=== PATIENT | female | born 2000 | race Caucasian/White ===

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

== ENCOUNTER 2020-06-11 10:53 | Outpatient (CLI) | payer OTHER ==
[2020-06-11 19:12] LABS: BASOPHILS # (AUTO) 0.1 10^3/uL (0.0-0.1); BASOPHILS % (AUTO) 0.7 %; EOSINOPHILS # (AUTO) 0.1 10^3/uL (0.0-0.7); EOSINOPHILS % (AUTO) 0.7 %; HGB - HEMOGLOBIN 12.8 g/dL (12.0-16.0); LYMPHOCYTES # (AUTO) 2.8 10^3/uL (1.5-3.5); LYMPHOCYTES % (AUTO) 30.1 %; MEAN CORPUSCULAR HEMOGLOBIN 28.1 pg (27.0-31.0); MEAN CORPUSCULAR HGB CONC 30.9 g/dL (32.0-36.0); MEAN CORPUSCULAR VOLUME 90.8 fL (81.0-99.0); MEAN PLATELET VOLUME 11.3 fL (7.9-10.8); MONOCYTES # (AUTO) 0.5 10^3/uL (0.0-1.0); MONOCYTES % (AUTO) 5.7 %; NEUTROPHILS # (AUTO) 5.7 10^3/uL (1.5-6.6); NEUTROPHILS % (AUTO) 62.5 %; PLT - PLATELET COUNT 325 10^3/uL (130-450); RED BLOOD COUNT 4.56 10^6/uL (4.20-5.40); WHITE BLOOD COUNT 9.1 x10^3/uL (4.8-10.8)
[2020-06-11 19:27] LABS: ALBUMIN 4.5 g/dL (3.2-5.5); ALBUMIN/GLOBULIN RATIO 1.3 (1.0-2.2); BILIRUBIN,TOTAL 0.5 mg/dL (0.2-1.0); CALCIUM 9.7 mg/dL (8.5-10.3); CREATININE 0.9 mg/dL (0.4-1.0); TOTAL PROTEIN 7.9 g/dL (6.7-8.2)
== END 2020-06-11 23:59 | disposition home or self-care (01) ==
LOC: LAB.WCP 10:53
PROVIDERS: ATTEND Family Medicine
DX: K80.20 Calculus of gallbladder without cholecystitis without obstruction (principal)
CPT/HCPCS: 36415; 80053; 85025

== ENCOUNTER 2020-06-21 06:42 | Outpatient (CLI) | payer OTHER ==
--- NOTE | 2020-06-21 09:21 | Ultrasound Report ---
PROCEDURE: Abdomen Limited INDICATIONS: GALLSTONES TECHNIQUE: Real-time focused scanning was performed of the abdomen, with image documentation. COMPARISON: None FINDINGS: There is a large mobile gallstone measuring 1.8 x 1.2 cm. There is no gallbladder wall thickening or fluid around the gallbladder or sonographic Montoya sign. No dilated ducts. Common duct measures 2 mm. Visualized portions of the pancreas are unremarkable. The liver has a normal echo pattern. The right kidney is normal in size, measuring 10.4 cm. There is no right hydronephrosis. IMPRESSION: Cholelithiasis. Reviewed by: Surinder Khan MD on 06/21/2020 9:20 AM PST Approved by: Surinder Khan MD on 06/21/2020 9:20 AM PST Station ID: [id number]
== END 2020-06-21 06:43 | disposition home or self-care (01) ==
LOC: DI 06:42
PROVIDERS: ATTEND Family Medicine
DX: K80.20 Calculus of gallbladder without cholecystitis without obstruction (principal)

== ENCOUNTER 2020-07-26 16:44 | Outpatient (CLI) | payer OTHER | END 2020-07-26 16:45 | disposition home or self-care (01) | LOC: COV 16:44 | PROVIDERS: ATTEND Surgery | DX: Z01.812 Encounter for preprocedural laboratory examination (principal); K81.1 Chronic cholecystitis; Z20.822 Contact with and (suspected) exposure to COVID-19 ==

== ENCOUNTER 2020-07-30 07:34 | Day surgery (SDC) | payer OTHER ==
[~2020-07-30 07:34] MED LIST: ceFAZolin 2 GM/50 ML 2 GM/50 ML BAG IV ONE
[2020-07-30 07:52] LABS: HCG UR QUAL NEGATIVE
[2020-07-30] MEDS ORDERED: LACTATED RINGERS 1,000 ML IV ONE (08:08)
--- NOTE | 2020-07-30 08:14 | ANESTHESIA ---
Pre-Anesthesia VS, & Labs - Diagnosis cholecytitis, chronic - Procedure laparoscopic cholecystectomy Vital Signs: Temp Pulse Resp BP Pulse Ox 36.3 C L 81 16 124/75 97 07/30/20 07:40 07/30/20 07:40 07/30/20 07:40 07/30/20 07:40 07/30/20 07:40 Height: 5 ft 5 in Weight (kg): 88.9 kg Body Mass Index: 32.5 BMI Classification: Obese - NPO >8 hours - Is Patient ?: No - Lab Results Lab results reviewed: Yes Home Medications and Allergies Home Medications: Ambulatory Orders No Known Home Medications 07/19/20 No Known Home Medications 07/19/20 Allergies/Adverse Reactions: Allergies Allergy/AdvReac Type Severity Reaction Status Date / Time No Known Drug Allergies Allergy Verified 11/06/19 19:30 Anes History & Medical History - Anesthetic History Anesthesia Complications: reports: No previous complications, Post-Operative Nausea/Vomiting (C/S, under spinal) Family history of Anesthesia Complications: Denies Family history of Malignant Hyperthermia: Denies - Medical History Cardiovascular: reports: None Pulmonary: reports: None Gastrointestinal: reports: GERD, Other Urinary: reports: Chronic bladder infection Musculoskeletal: reports: None Endocrine/Autoimmune: reports: None Skin: reports: None Smoking Status: Former smoker - Surgical History Eyes Ears Nose Throat (EENT): reports: Tonsil/Adenoidectomy Exam General: Alert, Oriented x3, Cooperative Dental: WNL, Other (cap loose at upper left) Mouth Openin Fingerbreadth Neck Mobility: Normal Mallampati classification: II Thyromental Distance: 4-6 cm Respiratory: Lungs clear, Normal breath sounds Cardiovascular: Regular rate Neurological: Normal speech Mental/Cognitive Status: Alert/Oriented X3, Normal for patient Cognitive Status: Within normal limits Plan Anesthesia Type: General Consent for Procedure(s) Verified and Reviewed: Yes Code Status: Attempt Resuscitation ASA classification: 2-Mild systemic disease Is this case an emergency?: No
[2020-07-30] MEDS ORDERED: fentaNYL 100 MCG/2 ML VIAL ONE ×2 (08:18→09:26)
[2020-07-30] MEDS ORDERED: MIDAZOLAM 2 MG/2 ML VIAL ONE (08:18)
[2020-07-30] MEDS ORDERED: ROCURONIUM 50 MG/5 ML VIAL ONE (08:19)
[2020-07-30] MEDS ORDERED: LIDOCAINE-MPF 2% 5 ML VIAL ONE (08:19)
[2020-07-30] MEDS ORDERED: PROPOFOL 200 MG/20 ML VIAL IVP ONE (08:19)
[2020-07-30] MEDS ORDERED: BUPIVACAINE 0.25% PF 30 ML VIAL ONE (08:42)
[2020-07-30] MEDS ORDERED: ONDANSETRON 4 MG/2 ML VIAL ONE (09:26)
[2020-07-30] MEDS ORDERED: DEXAMETHASONE 4 MG/ML VIAL ONE (09:27)
[2020-07-30] MEDS ORDERED: KETOROLAC 30 MG/ML VIAL ONE (09:27)
[2020-07-30] MEDS ORDERED: BUPIVACAINE 0.25% PF 30 ML VIAL SUBQ ONE (09:47)
[2020-07-30] MEDS ORDERED: NEOSTIGMINE 1 MG/1 ML 10 ML MDV ONE (09:58)
[2020-07-30] MEDS ORDERED: GLYCOPYRROLATE 1 MG/5 ML VIAL ONE (09:58)
[2020-07-30] MEDS ORDERED: LACTATED RINGERS 800 ML IV ONE (10:03)
[2020-07-30] MEDS ORDERED: SEVOFLURANE 250 ML LIQUID INH ONE (10:05)
[2020-07-30] MEDS ORDERED: ONDANSETRON 4 MG/2 ML VIAL IVP PRN (10:07)
--- NOTE | 2020-07-30 10:07 | OPERATIVE REPORT ---
Operative Report - General Procedure Date: 07/30/20 Planned Procedure: lap matilde Pre-Op Diagnosis: chronic cholecystitis Procedure Performed: lap matilde Post Op Diagnosis: chronic cholecystitis - Procedure Note Primary Surgeon: maynor posey Anesthesia Technique: General ET tube, Local Pathology: gb Estimated Blood Loss (mL): 20 Indications: daily gallbladder pain Complications: none
[2020-07-30] MEDS ORDERED: oxyCODONE 5 MG TABLET PO PRN (10:24)
--- NOTE | 2020-07-30 10:58 | ANESTHESIA POST OP EVALUATION ---
Anesthesia Post Eval - Post Anesthesia Eval Vitals: Last Vital Signs Temp 37.7 C 07/30/20 10:48 Pulse 80 07/30/20 10:48 Resp 15 07/30/20 10:48 BP 123/69 07/30/20 10:48 Pulse Ox 97 07/30/20 10:48 CV Function Including HR & BP: positive: Stable Pain Control: positive: Satisfactory Nausea & Vomiting: positive: Negative Mental Status: positive: Baseline Respiratory Status: Airway Patent Hydration Status: Satisfactory Anesthesia Complications: positive: None
[2020-07-30 11:25] VITALS: BP 116/69
[2020-07-30] MEDS ORDERED: oxyCODONE 5 MG TABLET ONE (11:42)
--- NOTE | 2020-07-30 14:54 | OPERATIVE REPORT ---
DATE OF SERVICE: 07/30/2020 Physician: Ronaldo Cabral MD PREOPERATIVE DIAGNOSIS: Chronic cholecystitis. POSTOPERATIVE DIAGNOSIS: Chronic cholecystitis. PROCEDURE PERFORMED: Laparoscopic cholecystectomy. SURGEON: Ronaldo Cabral MD [employer] C[employer] TEACHER: None. ANESTHESIA 1. General endotracheal anesthesia. 2. Local anesthesia with Marcaine. COMPLICATIONS: None. SPECIMENS: Gallbladder. ESTIMATED BLOOD LOSS: 20 mL DRAINS: None. INDICATIONS FOR PROCEDURE: The patient is a healthy 20-year-old with classic chronic cholecystitis t ype symptoms. She has near daily right upper quadrant pain going to her upper back. On ultrasound, she has a large single gallstone. LFTs are normal. She presents for a laparoscopic cholecystectomy. Risks discussed, alternatives discussed, all questions answered and consent obtained. DESCRIPTION OF PROCEDURE: The patient was properly identified and brought to the operating room and placed in supine position. She voided prior to surgery. Sequential compression devices were placed. General endotracheal anesthesia was induced. She was prepped and draped in a sterile fashion and g iven preoperative antibiotics. Local anesthetic was given to incision areas. An incision was made a pproximately 4 cm cephalad and 4 cm right lateral of the umbilicus. Dissection proceeded down to the anterior rectus sheath. The anterior rectus sheath was slightly incised, lifted upwards and abdomen entered with the Veress needle. CO2 was insufflated to a pressure of 15. An 11 mm Visiport trocar with 30-degree scope was placed. There was no evidence of injury from Veress needle or trocar placem ent. Under direct vision, two 5 mm trocars were placed in the right upper quadrant and an 11 mm troc ar was placed in the epigastrium. Body of the gallbladder was retracted anterior. Lateral attachmen ts were partially taken down further mobilizing the gallbladder more anterior. The infundibulum and Jason's pouch area was cleared of surrounding peritoneal type tissue and adipose tissue. The infu ndibulum was retracted right lateral and caudad. The cystic duct and cystic artery were clearly iden tified. A large bare cystic plate area or window was created. The cystic duct was very narrow, only a few millimeters in diameter. The cystic duct was clipped at the gallbladder and 2 more times slig htly proximal, as well as at the cystic artery. Both were sharply divided. The gallbladder was mobi lized off of the bed of the liver without spillage of bile or stone material. The gallbladder was br ought out through the epigastrium. She had some bleeding at the epigastric trocar site, which was ev acuated. Fascia at the epigastric trocar site and the periumbilical trocar site were both closed wit h a [id number] 0 Vicryl suture. Skin was closed with buried interrupted and running 4-0 Monocry l subcuticular suture. Dressings were applied. She tolerated the procedure very well. TD: 07/30/2020 12:56
== END 2020-07-30 07:35 | disposition home or self-care (01) ==
LOC: SDS 07:34
PROVIDERS: ATTEND Surgery
PROC: 0FT44ZZ Resection of Gallbladder, Percutaneous Endoscopic Approach (ICD-10-PCS; principal; 2020-07-30 08:30)
DX: K80.10 Calculus of gallbladder with chronic cholecystitis without obstruction (principal); K21.9 Gastro-esophageal reflux disease without esophagitis; E66.9 Obesity, unspecified; Z68.32 Body mass index [BMI] 32.0-32.9, adult; Z87.891 Personal history of nicotine dependence
CPT/HCPCS: 47562; 81025; A9270; J0690; J3490; J7120

== ENCOUNTER 2020-09-01 17:42 | Emergency (ER) | payer OTHER ==
--- OUTSIDE RECORDS SUMMARY | 2020-09-01 18:25 | EXTERNAL MEDICAL SUMMARY RPT | Continuity of Care Document ---
:2000 Demographics Phone Unavailable Preferred Language Unknown Marital Status Unknown Buddhist Affiliation Unknown Race Unknown Ethnic Group Unknown Author Organization [facility] Address [address] [place] [address] Phone Social History date description facility [id number]
--- NOTE | 2020-09-01 18:30 | ED Physician Documentation ---
PD HPI LOWER EXT INJURY - Stated complaint Stated Complaint: LT ANKLE INJ - Chief complaint Chief Complaint: Trauma Ext - History obtained from History obtained from: Patient - History of Present Illness PD HPI LOW EXT INJURY LOCATION: Left, Foot Type of injury: Twist Where injury occurred: Park Timing - onset: How many hours ago (2) Timing - duration: Hours (1) Timing - details: Abrupt onset Pain level max: 8 Pain level now: 7 Improved by: Rest Worsened by: Moving, Palpating Associated symptoms: Swelling. No: Weakness, Numbness, Tingling, Discolored Contributing factors: No: Anticoagulated - Additional information Additional information: 20-year-old female states she was [place] [place] about an hour ago when she tripped and inverted her left ankle. Now has left ankle pain. Worse with walking, better with rest. There is swelling as well. No numbness or tingling. Not anticoagulated. No other injuries Review of Systems Constitutional: denies: Fever, Chills GI: denies: Nausea, Vomiting, Diarrhea : denies: Now EGA Musculoskeletal: denies: Neck pain, Back pain PD PAST MEDICAL HISTORY - Past Medical History Past Medical History: Yes Cardiovascular: None Respiratory: None Neuro: None Endocrine/Autoimmune: None GI: GERD, Other : Chronic bladder infection HEENT: Chronic vision loss Psych: Anxiety, Panic attacks, Post traumatic stress disorder Musculoskeletal: None Derm: None - Past Surgical History Past Surgical History: Yes General: Cholecystectomy HEENT: Tonsil/Adenoidectomy - Present Medications Home Medications: Ambulatory Orders Medication Instructions Recorded Confirmed Pnv No.95/Ferrous Fum/Folic AC 1 each PO DAILY 09/01/20 09/01/20 [ Tablet] - Allergies Allergies/Adverse Reactions: Allergies Allergy/AdvReac Type Severity Reaction Status Date / Time No Known Drug Allergies Allergy Verified 09/01/20 17:45 - Social History Does the pt smoke?: No Smoking Status: Never smoker Does the pt drink ETOH?: No Does the pt have substance abuse?: No - Immunizations Immunizations are current?: Yes PD ED PE NORMAL - Vitals Vital signs reviewed: Yes - General General: Alert and oriented X 3, No acute distress - HEENT HEENT: Moist mucous membranes - Neck Neck: Supple, no meningeal sign - Derm Derm: Warm and dry - Extremities Extremities: Other (Patient over the lateral malleolus of the left ankle. No tenderness over the remainder of the foot including base of the fifth meta tarsal. No tenderness over the proximal tibia or fibula. Mild swelling over the lateral malleolus as well. neurovascular intact) - Neuro Neuro: Alert and oriented X 3 - Psych Psych: Normal mood, Normal affect Results - Vitals Vitals: Vital Signs - 24 hr 09/01/20 09/01/20 17:46 18:44 Temperature 36.7 C 36.8 C Heart Rate 103 H 81 Respiratory 18 16 Rate Blood Pressure 149/90 H 117/98 H O2 Saturation 99 98 Oxygen O2 Source Room air - Rads (name of study) L ankle xray Radiology: Prelim report reviewed, EMP read contemporaneously, See rad report (No acute bony abnormality) PD MEDICAL DECISION MAKING - ED course Complexity details: reviewed results, re-evaluated patient, considered differential, d/w patient ED course: Patient is a 20-year-old female who presents with a left ankle sprain. No acute findings on x-ray. Placed in a gel splint for comfort and given crutches. Declines pain medication here or for home. Patient counseled regarding signs and symptoms for which I believe and urgent re-evaluation would be necessary. Patient with good understanding of and agreement to plan and is comfortable going home at this time This document was made in part using voice recognition software. While efforts are made to proofread this document, sound alike and grammatical errors may occur. Departure - Departure Disposition: 01 Home, Self Care Clinical Impression: Left ankle sprain Qualifiers: Encounter type: initial encounter Involved ligament of ankle: unspecified ligament Qualified Code(s): S93.402A - Sprain of unspecified ligament of left ankle, initial encounter Condition: Good Instructions: ED Sprain Ankle W X Ray Follow-Up: BON JOHNSON, MSN, MARKETING INSTRUCTOR [Primary Care Provider] - Within 1 week Comments: Your x-ray does not show any acute abnormalities today. Follow-up with your primary care provider in a week for repeat evaluation. The splint will help to support the ankle while it heals. You may bear weight as tolerated. Discharge Date/Time: 09/01/20 18:44
--- NOTE | 2020-09-01 18:35 | XRAY Report ---
PROCEDURE: Ankle 3 View LT INDICATIONS: fall, L ankle pain TECHNIQUE: 3 views of the ankle were acquired. COMPARISON: None. FINDINGS: Bones: No acute fractures or dislocations. Ankle mortise is normally aligned. No suspicious bony l esions. A small os naviculare is present. Soft tissues: Soft tissue edema is seen over the lateral malleolus. IMPRESSION: No acute osseous abnormality. Soft tissue edema is seen of the lateral malleolus. If the re is clinical concern or persistent symptoms, additional imaging such as repeat radiographs or advan randi imaging (e.g. CT, MRI) may be helpful for further evaluation. Reviewed by: Estevan Petty MD on 09/01/2020 6:34 PM PDT Approved by: Estevan Petty MD on 09/01/2020 6:34 PM PDT Station ID: [id number]
[2020-09-01 18:44] VITALS: BP 117/98
== END 2020-09-01 18:44 | disposition home or self-care (01) ==
LOC: ED 17:42
DX: S93.402A Sprain of unspecified ligament of left ankle, initial encounter (principal); X50.1XXA Overexertion from prolonged static or awkward postures, initial encounter; Y93.01 Activity, walking, marching and hiking; Y92.830 Public park as the place of occurrence of the external cause
CPT/HCPCS: 99282; 99283

== ENCOUNTER 2021-02-24 10:24 | Outpatient (CLI) | payer OTHER | END 2021-02-24 23:59 | disposition home or self-care (01) | LOC: LAB.N 10:24 | PROVIDERS: ATTEND Family Medicine | DX: R07.0 Pain in throat (principal); Z20.822 Contact with and (suspected) exposure to COVID-19 | CPT/HCPCS: 87070 ==

== ENCOUNTER 2021-08-29 16:32 | Outpatient (CLI) | payer OTHER ==
[2021-08-29 21:16] LABS: BASOPHILS # (AUTO) 0.1 10^3/uL (0.0-0.1); BASOPHILS % (AUTO) 0.6 %; EOSINOPHILS # (AUTO) 0.1 10^3/uL (0.0-0.7); EOSINOPHILS % (AUTO) 1.5 %; HCT - HEMATOCRIT 39.8 % (37.0-47.0); HGB - HEMOGLOBIN 13.4 g/dL (12.0-16.0); LYMPHOCYTES # (AUTO) 3.1 10^3/uL (1.5-3.5); LYMPHOCYTES % (AUTO) 33.3 %; MEAN CORPUSCULAR HEMOGLOBIN 30.5 pg (27.0-31.0); MEAN CORPUSCULAR HGB CONC 33.7 g/dL (32.0-36.0); MEAN CORPUSCULAR VOLUME 90.7 fL (81.0-99.0); MEAN PLATELET VOLUME 11.6 fL (7.9-10.8); MONOCYTES # (AUTO) 0.6 10^3/uL (0.0-1.0); MONOCYTES % (AUTO) 5.9 %; NEUTROPHILS # (AUTO) 5.5 10^3/uL (1.5-6.6); NEUTROPHILS % (AUTO) 58.6 %; PLT - PLATELET COUNT 290 10^3/uL (130-450); RED BLOOD COUNT 4.39 10^6/uL (4.20-5.40); RED CELL DISTRIBUTION WIDTH 12.8 % (12.0-15.0); WHITE BLOOD COUNT 9.3 x10^3/uL (4.8-10.8)
[2021-08-29 21:28] LABS: ALBUMIN 4.5 g/dL (3.2-5.5); ALBUMIN/GLOBULIN RATIO 1.6 (1.0-2.2); BILIRUBIN,TOTAL 0.8 mg/dL (0.2-1.0); CALCIUM 9.2 mg/dL (8.5-10.3); CREATININE 0.9 mg/dL (0.4-1.0); POTASSIUM 3.7 mmol/L (3.5-5.0); TOTAL PROTEIN 7.4 g/dL (6.7-8.2)
[2021-08-29 21:43] LABS: THYROID STIMULATING HORMONE 1.34 uIU/mL (0.34-5.60)
[2021-09-01 22:46] LABS: DHEA SULFATE 327 mcg/dL (44-286)
[2021-09-03 22:37] LABS: 17-HYDROXYPREGNENOLONE 76 ng/dL
== END 2021-08-29 16:33 | disposition home or self-care (01) ==
LOC: LAB.N 16:32
PROVIDERS: ATTEND Nurse Practitioner
DX: N92.6 Irregular menstruation, unspecified (principal); R53.83 Other fatigue; E66.9 Obesity, unspecified
CPT/HCPCS: 36415; 80050; 82627; 84143; 84403

== ENCOUNTER 2021-11-28 16:25 | Outpatient (CLI) | payer OTHER | END 2021-11-28 16:26 | disposition home or self-care (01) | LOC: LAB.N 16:25 | PROVIDERS: ATTEND Nurse Practitioner Obstetrics & Gynecology | DX: Z31.41 Encounter for fertility testing (principal) | CPT/HCPCS: 36415; 84144 ==

== ENCOUNTER 2021-12-01 14:48 | Outpatient (CLI) | payer OTHER | END 2021-12-01 14:49 | disposition home or self-care (01) | LOC: LAB.N 14:48 | PROVIDERS: ATTEND Nurse Practitioner Obstetrics & Gynecology | DX: Z31.41 Encounter for fertility testing (principal) | CPT/HCPCS: 36415; 84144 ==

== ENCOUNTER 2022-01-30 09:56 | Outpatient (CLI) | payer OTHER | END 2022-01-30 09:57 | disposition home or self-care (01) | LOC: LAB.N 09:56 | PROVIDERS: ATTEND Nurse Practitioner Obstetrics & Gynecology | DX: Z31.41 Encounter for fertility testing (principal) | CPT/HCPCS: 36415; 84144 ==

== ENCOUNTER 2022-05-06 08:00 | Outpatient (CLI) | payer OTHER ==
[2022-05-06 16:14] LABS: BILIRUBIN,URINE NEGATIVE (NEGATIVE); GLUCOSE, URINE (UA) NEGATIVE (NEGATIVE); KETONES,URINE (UA) NEGATIVE (NEGATIVE); LEUKOCYTE ESTERASE, URINE NEGATIVE (NEGATIVE); NITRITE,URINE NEGATIVE (NEGATIVE); OCCULT BLOOD,URINE NEGATIVE (NEGATIVE); PH,URINE 6.5 PH (5.0-7.5); PROTEIN,URINE NEGATIVE (NEGATIVE); UROBILINOGEN,URINE 0.2 (NORMAL) E.U./dL (NORMAL)
[2022-05-06 16:22] LABS: CLARITY,URINE CLEAR (CLEAR)
[2022-05-06 16:37] LABS: CREATININE,URINE 112.5 mg/dL; PROTEIN/CREATININE RATIO,URINE 0.1 (<=0.2)
[2022-05-06 16:38] LABS: BACTERIA,URINE Few /HPF (None Seen); RBC,URINE 0-5 /HPF (0-5); SQUAMOUS EPITHELIAL CELL,UR MOD Squamous (<= Few); WBC,URINE 0-3 /HPF (0-5)
== END 2022-05-06 23:59 | disposition home or self-care (01) ==
LOC: LAB.WC 08:00
PROVIDERS: ATTEND Nurse Practitioner
DX: O12.10 Gestational proteinuria, unspecified trimester (principal); O99.280 Endocrine, nutritional and metabolic diseases complicating pregnancy, unspecified trimester; E28.2 Polycystic ovarian syndrome
CPT/HCPCS: 36415; 81001; 81511; 82570; 82950; 83036; 84156; 84550; 85610; 85730; 87086

== ENCOUNTER 2022-05-06 15:08 | Outpatient (CLI) | payer OTHER ==
[2022-05-06 16:29] LABS: PT - PROTHROMBIN TIME 11.1 secs (9.9-12.6)
[2022-05-06 16:34] LABS: URIC ACID 3.1 mg/dL (2.6-7.2)
[2022-05-06 16:36] LABS: PARTIAL THROMBOPLASTIN TIME 26.4 secs (24.9-33.3)
[2022-05-06 20:42] LABS: ESTIMATED AVERAGE GLUCOSE 103 mg/dL (70-100); HEMOGLOBIN A1c% 5.2 % (4.27-6.07)
== END 2022-05-06 15:09 | disposition home or self-care (01) ==
LOC: LAB 15:08
PROVIDERS: ATTEND Nurse Practitioner
DX: O12.10 Gestational proteinuria, unspecified trimester (principal); O99.280 Endocrine, nutritional and metabolic diseases complicating pregnancy, unspecified trimester; E28.2 Polycystic ovarian syndrome
CPT/HCPCS: 36415; 81511; 82950; 83036; 84550; 85610; 85730

== ENCOUNTER 2022-06-01 13:13 | Outpatient (CLI) | payer OTHER ==
--- NOTE | 2022-06-01 18:03 | Ultrasound Report ---
PROCEDURE: OB Detailed Eval INDICATIONS: SUPERVISION OF OUTSIDE/PRIOR DATING DATA: Last menstrual period (LMP): 01/11/2022. LMP-based estimated date of delivery (JUAN): 10/01/2023. First dating scan (date and location): 06/01/2022. Estimated date of delivery (JUAN) from first dating scan: 10/18/2022. The below data below was generated using the working JUAN of 10/18/2022 TECHNIQUE: Real-time scanning was performed of the fetus, with image documentation and biometric measurements. Endovaginal scanning: None COMPARISON: None. FINDINGS: General: A single living intrauterine gestation is present. Presentation: Vertex Placenta: Placental position is posterior, without previa. Amniotic fluid index: 15.7 cm, normal for gestational age. heart rate: 162 beats per minute. Maternal cervical canal: 3.4 cm long; normal length is 2.5 cm or more. biometrics: Biparietal diameter: 4.8 cm, 20 week 4 day Head circumference: 17.9 cm, 20 week 3 day Abdominal circumference: 5.4 cm, 20 week 4 day Femur length: 3.7 cm, 21 week 5 day Estimated gestational age from initial scan: 20 week 4 day Composite gestational age from present scan: 20 week 4 day Estimated weight and percentile: June 95.4 g, 90.0 percentile Measurement variability in biometric dating: +/- 10 days from 12-20 weeks gestation, +/- 2 weeks from 20-30 weeks gestation, +/- 3 weeks at 30 weeks gestation or later. Anatomic survey: Neuro: Ventricles are normal at less than 10 mm. Cisterna magna is normal at 3-11 mm. Cerebellum i s normal in size and morphology. Nuchal skin fold: Normal at less than 6 mm between 14 and 20 weeks gestational age. Face: Nose and lips, facial profile are normal. Spine: No evidence for spina bifida. Heart: 4-chambered heart is present, with normal ventricular outflow tracts. Diaphragm: Diaphragm is intact. Stomach: Left-sided stomach is present. Kidneys: No hydronephrosis. Normal is less than 5 mm in 2nd trimester, less than 7 mm in 3rd trimester. Cord: 3 vessel cord has orthotopic insertion. Bladder: Normal in size. Extremities: All 4 extremities are visualized. IMPRESSION: Single live intrauterine consistent with a 20 week 4 day gestation Reviewed by: Pastor Ramos MD on 06/01/2022 5:02 PM [facility] Approved by: Pastor Ramos MD on 06/01/2022 5:02 PM [facility] Station ID: [id number]
== END 2022-06-01 13:14 | disposition home or self-care (01) ==
LOC: DI 13:13
PROVIDERS: ATTEND Nurse Practitioner
DX: Z34.92 Encounter for supervision of normal pregnancy, unspecified, second trimester (principal); Z36.89 Encounter for other specified antenatal screening

== ENCOUNTER 2022-07-01 15:02 | Outpatient (CLI) | payer OTHER ==
[2022-07-01 16:03] LABS: BILIRUBIN,URINE NEGATIVE (NEGATIVE); GLUCOSE, URINE (UA) NEGATIVE (NEGATIVE); KETONES,URINE (UA) NEGATIVE (NEGATIVE); LEUKOCYTE ESTERASE, URINE NEGATIVE (NEGATIVE); NITRITE,URINE NEGATIVE (NEGATIVE); OCCULT BLOOD,URINE NEGATIVE (NEGATIVE); PROTEIN,URINE NEGATIVE (NEGATIVE); UROBILINOGEN,URINE 0.2 (NORMAL) E.U./dL (NORMAL)
[2022-07-01 16:06] LABS: CLARITY,URINE CLEAR (CLEAR)
[2022-07-01 16:13] LABS: BACTERIA,URINE Rare /HPF (None Seen); RBC,URINE 0-5 /HPF (0-5); SQUAMOUS EPITHELIAL CELL,UR FEW Squamous (<= Few); WBC,URINE 0-3 /HPF (0-5)
--- NOTE | 2022-07-01 17:35 | PROVIDER PROGRESS NOTE ---
- HPI Chief Complaint: Labor Current : Current EDU 10/18/22 Gestation 24 Weeks and 3 Days Vital Signs Temperature 98.1 F 07/01/22 15:23 Heart Rate 90 07/01/22 15:23 Respiratory Rate 18 07/01/22 15:23 Blood Pressure 132/62 H 07/01/22 15:23 O2 Saturation 96 07/01/22 15:23 Temperature 98.1 F 07/01/22 15:25 Heart Rate 87 07/01/22 15:25 Respiratory Rate 18 07/01/22 15:25 Blood Pressure 132/62 H 07/01/22 15:25 O2 Saturation 96 07/01/22 15:23 If not protocol: Oxygen Flow, liters/minute - Plan Plan: Patient is a 22-year-old at 24 weeks 3 days gestation presenting to triage for vaginal pressure. She did have intercourse last night and pressure started after that. She has good movement, no leaking, no vaginal bleeding. She denies headache, right upper quadrant pain, changes in vision. She has a history of labor with painful contractions at 29 weeks. A mid transverse section due to malpresentation Past medical history Anxiety History of delivery at 29 weeks Past surgical history Tonsillectomy section at 29 weeks Cholecystectomy Family history Adopted Social history Former smoker. No tobacco or drug use. Physical Exam Constitutional: alert, no acute distress, well hydrated, well developed, well nourished, appropriate dress. Cardiovascular: Regular rate and rhythm. Respiratory: no respiratory distress. Abdomen: nondistended, nontender, no guarding. Psych: affect and mood appropriate, normal interaction, good eye contact. Sterile speculum exam: Negative for fluid negative Valsalva. Moderate amount of white discharge. heart tones: 150 bpm SVE: 0/0/-3 [place]: Quiescent Labs:UA unremarkable FFN: Positive GC/CT:Pending Vaginosis panel: Positive for yeast. TVUS: Cervical length 3.5 cm Assessment and plan 22-year-old 24 weeks 3 days gestation here for vaginal pressure. Vaginal pressure:No contractions on monitor. Discussed role of fibronectin where a negative result is reassuring, but a positive results means we should rule out other causes, but does not indicate labor. Good cervical length on ultrasound and no cervical change. Patient was kept for 4 hours without dilation. Discussed that yeast can also cause cervical irritation which may be what she is experiencing. Low likelihood of labor. Encouraged hydration and rest. Will contact [facility] for evaluation. Letter given with referral information. Encouraged a low threshold for return if symptoms worsened. Yeast vaginitis -Received Diflucan 150 mg p.o.
--- NOTE | 2022-07-01 18:34 | Ultrasound Report ---
PROCEDURE: OB Limited INDICATIONS: Cervical length only OUTSIDE/PRIOR DATING DATA: Last menstrual period (LMP): 01/11/2022. LMP-based estimated date of delivery (JUAN): 10/18/2022. First dating scan (date and location): 06/01/2022. Estimated date of delivery (JUAN) from first dating scan: 10/10/2022. TECHNIQUE: Real-time scanning of the pelvis with transvaginal images. COMPARISON: None. FINDINGS: Cervical length measures 3.4 cm on transabdominal scanning. The longest cervical length on transvagin al scanning is 4 cm. Estimated gestational age on initial ultrasound is 24 weeks and 3 days. Trace fluid in cervical canal . IMPRESSION: Transvaginal scanning longest cervical length measures up to 4 cm. Trace fluid in cervic al canal. Reviewed by: Jorge Maddox MD on 07/01/2022 6:32 PM PST Approved by: Jorge Maddox MD on 07/01/2022 6:32 PM PST Station ID: [id number]
--- NOTE | 2022-07-01 18:34 | Ultrasound Report ---
PROCEDURE: OB Limited INDICATIONS: Cervical length only OUTSIDE/PRIOR DATING DATA: Last menstrual period (LMP): 01/11/2022. LMP-based estimated date of delivery (JUAN): 10/18/2022. First dating scan (date and location): 06/01/2022. Estimated date of delivery (JUAN) from first dating scan: 10/10/2022. TECHNIQUE: Real-time scanning of the pelvis with transvaginal images. COMPARISON: None. FINDINGS: Cervical length measures 3.4 cm on transabdominal scanning. The longest cervical length on transvagin al scanning is 4 cm. Estimated gestational age on initial ultrasound is 24 weeks and 3 days. Trace fluid in cervical canal . IMPRESSION: Transvaginal scanning longest cervical length measures up to 4 cm. Trace fluid in cervic al canal. Reviewed by: Jorge Maddox MD on 07/01/2022 6:33 PM PST Approved by: Jorge Maddox MD on 07/01/2022 6:33 PM PST Station ID: [id number]
[2022-07-01 18:40] LABS: BACTERIAL VAGINOSIS DNA NEGATIVE (NEGATIVE)
[2022-07-01 18:41] LABS: CANDIDA GLABRATA DNA NEGATIVE (NEGATIVE); CANDIDA GROUP DNA POSITIVE (NEGATIVE); CANDIDA KRUSEI DNA NEGATIVE (NEGATIVE); TRICHOMONAS VAGINALIS DNA NEGATIVE (NEGATIVE)
[2022-07-01] MEDS ORDERED: FLUCONAZOLE 100 MG TABLET PO SCH (21:00)
[2022-07-01 23:38] LABS: CHLAMYDIA TRACHOMATIS DNA NEGATIVE (NEGATIVE); NEISSERIA GONORRHOEAE DNA NEGATIVE (NEGATIVE)
[2022-07-01 23:43] VITALS: BP 121/69
== END 2022-07-01 21:15 | disposition home or self-care (01) ==
LOC: WFO 15:02 → FBP 15:03 → WFO 21:15
PROVIDERS: ATTEND Obstetrics & Gynecology
DX: O98.812 Other maternal infectious and parasitic diseases complicating pregnancy, second trimester (principal); B37.31 Acute candidiasis of vulva and vagina; Z3A.24 24 weeks gestation of pregnancy; O09.212 Supervision of pregnancy with history of pre-term labor, second trimester
CPT/HCPCS: 76815; 76817; 81001; 81514; 82731; 87491; 87591; 99215; A9270; 87086; 87661

== ENCOUNTER 2022-07-09 12:28 | Outpatient (CLI) | payer OTHER ==
[2022-07-09 12:53] LABS: HCT - HEMATOCRIT 35.1 % (37.0-47.0); HGB - HEMOGLOBIN 11.5 g/dL (12.0-16.0); MEAN CORPUSCULAR HEMOGLOBIN 29.8 pg (27.0-31.0); MEAN CORPUSCULAR HGB CONC 32.8 g/dL (32.0-36.0); MEAN CORPUSCULAR VOLUME 90.9 fL (81.0-99.0); MEAN PLATELET VOLUME 9.9 fL (7.9-10.8); RED BLOOD COUNT 3.86 10^6/uL (4.20-5.40); RED CELL DISTRIBUTION WIDTH 13.1 % (12.0-15.0); WHITE BLOOD COUNT 10.8 x10^3/uL (4.8-10.8)
[2022-07-09 13:07] LABS: ALBUMIN 2.8 g/dL (3.2-5.5); ALBUMIN/GLOBULIN RATIO 0.7 (1.0-2.2); ALKALINE PHOSPHATASE 43 IU/L (42-121); ALT ALANINE AMINOTRANSFERASE < 10 IU/L (10-60); AST ASPARTATE AMINOTRANSFERASE 10 IU/L (10-42); BILIRUBIN,TOTAL 0.3 mg/dL (0.2-1.0); BUN - BLOOD UREA NITROGEN 7 mg/dL (6-20); CALCIUM 9.1 mg/dL (8.5-10.3); CARBON DIOXIDE - CO2 18 mmol/L (21-32); CHLORIDE 107 mmol/L (101-111); CREATININE 0.5 mg/dL (0.4-1.0); GFR - MDRD 154 (>89); GLUCOSE 120 mg/dL (70-100); POTASSIUM 3.8 mmol/L (3.5-5.0); SODIUM 135 mmol/L (135-145); TOTAL PROTEIN 6.6 g/dL (6.7-8.2)
[2022-07-09 13:18] LABS: CREATININE,URINE 81.9 mg/dL; PROTEIN/CREATININE RATIO,URINE 0.1 (<=0.2)
== END 2022-07-09 12:29 | disposition home or self-care (01) ==
LOC: LAB 12:28
PROVIDERS: ATTEND Obstetrics & Gynecology
DX: O16.9 Unspecified maternal hypertension, unspecified trimester (principal); Z87.59 Personal history of other complications of pregnancy, childbirth and the puerperium
CPT/HCPCS: 36415; 80053; 82570; 84156; 85027

== ENCOUNTER 2022-07-11 08:30 | Outpatient (CLI) | payer OTHER ==
[2022-07-11 19:19] LABS: CREATININE,URINE 90.9 mg/dL
== END 2022-07-11 23:59 | disposition home or self-care (01) ==
LOC: LAB.N 08:30
PROVIDERS: ATTEND Obstetrics & Gynecology
DX: O16.9 Unspecified maternal hypertension, unspecified trimester (principal); Z87.59 Personal history of other complications of pregnancy, childbirth and the puerperium
CPT/HCPCS: 82570; 84156

== ENCOUNTER 2022-07-17 15:18 | Outpatient (CLI) | payer OTHER ==
[2022-07-17 15:54] VITALS: BP 128/72
[2022-07-17 16:11] LABS: BASOPHILS % (AUTO) 0.2 %; EOSINOPHILS # (AUTO) 0.1 10^3/uL (0.0-0.7); EOSINOPHILS % (AUTO) 0.6 %; HCT - HEMATOCRIT 33.6 % (37.0-47.0); LYMPHOCYTES # (AUTO) 2.4 10^3/uL (1.5-3.5); MEAN CORPUSCULAR HEMOGLOBIN 29.9 pg (27.0-31.0); MEAN CORPUSCULAR HGB CONC 32.7 g/dL (32.0-36.0); MEAN CORPUSCULAR VOLUME 91.3 fL (81.0-99.0); MEAN PLATELET VOLUME 10.2 fL (7.9-10.8); MONOCYTES # (AUTO) 0.5 10^3/uL (0.0-1.0); MONOCYTES % (AUTO) 4.5 %; NEUTROPHILS # (AUTO) 7.9 10^3/uL (1.5-6.6); NEUTROPHILS % (AUTO) 72.2 %; PLT - PLATELET COUNT 242 10^3/uL (130-450); RED BLOOD COUNT 3.68 10^6/uL (4.20-5.40); RED CELL DISTRIBUTION WIDTH 13.2 % (12.0-15.0); WHITE BLOOD COUNT 10.9 x10^3/uL (4.8-10.8)
--- NOTE | 2022-07-17 16:45 | PROVIDER PROGRESS NOTE ---
Progress Note This 22-year-old 2 para 1 at 26 weeks 5 days presented to the unit with decreased movement and heavy pressure feeling in the pelvis. She had a urgent transverse cervical section at 29 weeks 2 days on November 10, 2019. During that she presented to the unit with the cramps and she was found to have 4 cm dilated cervix and she was transferred to [place] and section was done 4 days after because of membrane was a bulging. Presentation was breech presentation. She transferred her care at 16 weeks 3 days from [facility] and she was seen at the [place] [facility] but she was transferred down here because of high risk history. She had a history of preeclampsia and previous premature labor and ended up section at 29 weeks 3 days. And she has a obesity issue also. During her course the option of TOLAC was discussed and she agreed to have scheduled repeat section around 37 weeks because we do not provide the option of TolAC. She came to the unit last week with a chief complaint of cramps and fibronectin was positive. Today, after she came she started to feel the baby's movement. Bedside quick ultrasound showed breech presentation with active movement and cardiac activity was noted too. Speculum examination revealed a healthy looking cervix. Digital examination revealed a closed cervix with minimal effacement. Presenting part was not felt because it is ballotable. She is going to be discharged home with instruction. She is going to come back to the clinic on scheduled date. Pelvic rest was recommended and she understood.
== END 2022-07-17 16:40 | disposition home or self-care (01) ==
LOC: WFO 15:18 → FBP 15:20 → WFO 16:40
PROVIDERS: ATTEND Obstetrics & Gynecology
DX: O32.1XX0 Maternal care for breech presentation, not applicable or unspecified (principal); O34.211 Maternal care for low transverse scar from previous cesarean delivery; Z3A.26 26 weeks gestation of pregnancy; Z87.59 Personal history of other complications of pregnancy, childbirth and the puerperium
CPT/HCPCS: 36415; 85025; 99215

== ENCOUNTER 2022-07-25 09:29 | Outpatient (CLI) | payer OTHER | END 2022-07-25 09:30 | disposition home or self-care (01) | LOC: LAB 09:29 | PROVIDERS: ATTEND Obstetrics & Gynecology | DX: O09.892 Supervision of other high risk pregnancies, second trimester (principal) | CPT/HCPCS: 36415; 82950 ==

== ENCOUNTER 2022-08-26 08:00 | Outpatient (CLI) | payer OTHER ==
[2022-08-27 18:18] LABS: BACTERIAL VAGINOSIS DNA NEGATIVE (NEGATIVE); CANDIDA GROUP DNA POSITIVE (NEGATIVE); CANDIDA KRUSEI DNA NEGATIVE (NEGATIVE); TRICHOMONAS VAGINALIS DNA NEGATIVE (NEGATIVE)
[2022-08-27 18:19] LABS: CANDIDA GLABRATA DNA NEGATIVE (NEGATIVE)
== END 2022-08-26 23:59 | disposition home or self-care (01) ==
LOC: LAB 08:00
PROVIDERS: ATTEND Nurse Practitioner
DX: O99.891 Other specified diseases and conditions complicating pregnancy (principal); N89.8 Other specified noninflammatory disorders of vagina; Z36.85 Encounter for antenatal screening for Streptococcus B
CPT/HCPCS: 81514; 87797

== ENCOUNTER 2022-08-26 15:38 | Outpatient (CLI) | payer OTHER ==
[2022-08-26] MEDS ORDERED: LACTATED RINGERS 1,000 ML IV SCH (16:00)
[2022-08-26] MEDS ORDERED: LACTATED RINGERS 1,000 ML IV ONE (16:13)
[2022-08-26 16:15] LABS: BASOPHILS % (AUTO) 0.2 %; EOSINOPHILS % (AUTO) 0.3 %; HCT - HEMATOCRIT 36.1 % (37.0-47.0); HGB - HEMOGLOBIN 11.9 g/dL (12.0-16.0); LYMPHOCYTES # (AUTO) 2.1 10^3/uL (1.5-3.5); LYMPHOCYTES % (AUTO) 20.6 %; MEAN CORPUSCULAR VOLUME 90.9 fL (81.0-99.0); MEAN PLATELET VOLUME 10.5 fL (7.9-10.8); MONOCYTES # (AUTO) 0.6 10^3/uL (0.0-1.0); MONOCYTES % (AUTO) 6.2 %; NEUTROPHILS # (AUTO) 7.5 10^3/uL (1.5-6.6); NEUTROPHILS % (AUTO) 72.3 %; PLT - PLATELET COUNT 257 10^3/uL (130-450); RED BLOOD COUNT 3.97 10^6/uL (4.20-5.40); RED CELL DISTRIBUTION WIDTH 13.6 % (12.0-15.0); WHITE BLOOD COUNT 10.4 x10^3/uL (4.8-10.8)
[2022-08-26 16:40] LABS: ALBUMIN 2.6 g/dL (3.2-5.5); ALBUMIN/GLOBULIN RATIO 0.7 (1.0-2.2); BILIRUBIN,TOTAL 0.3 mg/dL (0.2-1.0); CALCIUM 8.6 mg/dL (8.5-10.3); CREATININE 0.6 mg/dL (0.4-1.0); POTASSIUM 3.7 mmol/L (3.5-5.0); TOTAL PROTEIN 6.2 g/dL (6.7-8.2)
[2022-08-26 17:23] VITALS: BP 135/70
--- NOTE | 2022-08-26 18:05 | PROVIDER PROGRESS NOTE ---
- HPI Chief Complaint: Labor Current : Vital Signs Temperature 98.6 F 08/26/22 15:53 Heart Rate 88 08/26/22 15:53 Respiratory Rate 16 08/26/22 15:53 Blood Pressure 118/75 08/26/22 15:53 Temperature 98.6 F 08/26/22 17:22 Heart Rate 87 08/26/22 17:22 Respiratory Rate 16 08/26/22 17:22 Blood Pressure 135/70 H 08/26/22 17:22 O2 Saturation If not protocol: Oxygen Flow, liters/minute - Procedures OB Procedure Performed: NST Diagnosis/Indication for NST: labor NST Procedure: NST Procedure Start Time 15:24 Stop Time 14:10 EFM: 140s, moderate variability, positive 15x15 accelerations, no decelerations [place]: q4-6 min, then spaced NST reactive/Cat 1 Performed and read 08/26/22 Service Date of procedure: 08/26/22 - Plan Plan: 22yo at 32.3w sent from office visit for BP evaluation and cramping pains. Denies bleeding or leaking fluids. Good movement. BP 144/80 in the office. complicated by history of labor at 29w. She was transferred from last for labor and preeclampsia. She delivered via PCD a few days later at . ~1m NICU stay. VSS GEN: NAD CV: Regular rate Resp: Breathing unlabored Abd: soft, nt Ext: nt SVE: fingertip/50/-3/posterior NST reactive 22yo at 32.3w, false labor - 1L LR bolus given - PET labs benign and normotensive in triage - Follow up PCR - Contractions decreased while in triage. SVE repeated few hours and still fingertip. Strict return precautions given for labor. - Follow up as scheduled or earlier prn
[2022-08-26 18:52] LABS: PROTEIN/CREATININE RATIO,URINE 0.2 (<=0.2)
== END 2022-08-26 18:10 | disposition home or self-care (01) ==
LOC: WFO 15:38 → FBP 15:41 → WFO 18:10
PROVIDERS: ATTEND Obstetrics & Gynecology
DX: O47.03 False labor before 37 completed weeks of gestation, third trimester (principal); Z3A.32 32 weeks gestation of pregnancy; Z87.59 Personal history of other complications of pregnancy, childbirth and the puerperium
CPT/HCPCS: 36415; 59025; 80053; 82570; 83615; 84156; 84550; 85025; 96360; 99214; J7120; 84450

== ENCOUNTER 2022-09-05 20:35 | Outpatient (CLI) | payer OTHER ==
[2022-09-05 21:13] VITALS: BP 136/84
[2022-09-05 21:24] LABS: BASOPHILS % (AUTO) 0.3 %; EOSINOPHILS # (AUTO) 0.1 10^3/uL (0.0-0.7); EOSINOPHILS % (AUTO) 0.5 %; HCT - HEMATOCRIT 34.1 % (37.0-47.0); HGB - HEMOGLOBIN 11.3 g/dL (12.0-16.0); LYMPHOCYTES # (AUTO) 3.1 10^3/uL (1.5-3.5); LYMPHOCYTES % (AUTO) 27.6 %; MEAN CORPUSCULAR HGB CONC 33.1 g/dL (32.0-36.0); MEAN CORPUSCULAR VOLUME 90.5 fL (81.0-99.0); MEAN PLATELET VOLUME 10.3 fL (7.9-10.8); MONOCYTES # (AUTO) 0.7 10^3/uL (0.0-1.0); MONOCYTES % (AUTO) 6.2 %; NEUTROPHILS # (AUTO) 7.2 10^3/uL (1.5-6.6); NEUTROPHILS % (AUTO) 65.1 %; PLT - PLATELET COUNT 270 10^3/uL (130-450); RED BLOOD COUNT 3.77 10^6/uL (4.20-5.40); RED CELL DISTRIBUTION WIDTH 13.3 % (12.0-15.0); WHITE BLOOD COUNT 11.1 x10^3/uL (4.8-10.8)
[2022-09-05 21:35] LABS: ALBUMIN 2.7 g/dL (3.2-5.5); ALBUMIN/GLOBULIN RATIO 0.8 (1.0-2.2); BILIRUBIN,TOTAL 0.3 mg/dL (0.2-1.0); CALCIUM 8.5 mg/dL (8.5-10.3); CREATININE 0.7 mg/dL (0.4-1.0); POTASSIUM 3.6 mmol/L (3.5-5.0); TOTAL PROTEIN 6.2 g/dL (6.7-8.2)
[2022-09-05] MEDS ORDERED: LACTATED RINGERS 1,000 ML IV SCH ×2 (22:00)
[2022-09-05 23:08] LABS: CREATININE,URINE 126.4 mg/dL; PROTEIN/CREATININE RATIO,URINE 0.1 (<=0.2)
--- NOTE | 2022-09-06 11:42 | PROVIDER PROGRESS NOTE ---
- HPI Chief Complaint: Decreased movement Current : Current EDU 10/18/22 Gestation 33 Weeks and 6 Days 2 Para 1 Vital Signs Temperature 98.1 F 09/05/22 20:51 Heart Rate 95 09/05/22 20:51 Respiratory Rate 17 09/05/22 20:51 Blood Pressure 136/84 H 09/05/22 20:51 O2 Saturation 100 09/05/22 20:51 Temperature 98.1 F 09/05/22 20:53 Heart Rate 95 09/05/22 20:53 Respiratory Rate 18 09/05/22 20:53 Blood Pressure 136/84 H 09/05/22 20:53 O2 Saturation 100 09/05/22 20:51 If not protocol: Oxygen Flow, liters/minute - Procedures OB Procedure Performed: NST Diagnosis/Indication for NST: Decreased movement NST Procedure: NST Procedure Start Date 09/05/22 Start Time 20:43 Stop Time 22:02 Vibroacoustic Stimulation Used No Patient States Movement Yes EFM: 140s, moderate variability, positive 15x15 accelerations, no decelerations [place]: one contraction NST reactive/Cat 1 Performed and read 09/05/22 Service Date of procedure: 09/05/22 - Plan Plan: 22yo at 33.6w presenting to [facility] with her for concern of decreased FM. She has not felt baby move since earlier today after having a snack and actively monitoring. Occasional contractions. Denies leaking fluid or bleeding. complicated by prior CD x1, chronic hypertension, history of labor and delivery at 29w, history of preeclampsia, BMI 38. VSS GEN: NAD CV: Regular rate Resp: No distress Abd: soft, nt Ext: nt SVE closed/-3 Preeclampsia labs reviewed and benign 22yo at 33.6w with reactive NST, initial concern of decreased movement in third trimester - NST reactive and patient reassured, feels comfortable going home - False labor, SVE unchanged from prior visit - Normotensive and preeclampsia labs benign - Discharge to home, follow up at scheduled appointment this week 09/10
== END 2022-09-05 22:15 | disposition home or self-care (01) ==
LOC: WFO 20:35 → FBP 20:38 → WFO 22:15
PROVIDERS: ATTEND Obstetrics & Gynecology
DX: O47.03 False labor before 37 completed weeks of gestation, third trimester (principal); Z3A.33 33 weeks gestation of pregnancy; O36.8130 Decreased fetal movements, third trimester, not applicable or unspecified; O16.3 Unspecified maternal hypertension, third trimester; Z87.59 Personal history of other complications of pregnancy, childbirth and the puerperium
CPT/HCPCS: 36415; 80053; 82570; 84156; 84550; 85025; 99214; J7120

== ENCOUNTER 2022-09-09 07:09 | Outpatient (CLI) | payer OTHER ==
--- NOTE | 2022-09-09 07:52 | PROVIDER PROGRESS NOTE ---
- HPI Chief Complaint: Decreased movement Current : Vital Signs Temperature 98.8 F 09/09/22 07:18 Heart Rate 78 09/09/22 07:18 Respiratory Rate 18 09/09/22 07:18 Blood Pressure 122/74 09/09/22 07:18 O2 Saturation 100 09/09/22 07:18 Temperature 98.8 F 09/09/22 07:21 Heart Rate 78 09/09/22 07:21 Respiratory Rate 18 09/09/22 07:21 Blood Pressure 122/74 09/09/22 07:21 O2 Saturation 100 09/09/22 07:18 If not protocol: Oxygen Flow, liters/minute - Procedures OB Procedure Performed: NST Diagnosis/Indication for NST: Decreased movement - Plan Plan: Patient is a 78-year-old -0-0-1 at 34 weeks 3 days gestation presenting to triage for decreased movement. She denies leaking or bleeding. No contractions. She denies headache, right upper quadrant pain, changes in vision. She does have a history of 37-week mid transverse section and should not labor. Physical Exam Constitutional: alert, no acute distress, well hydrated, well developed, well nourished, appropriate dress. Cardiovascular: Regular rate and rhythm. Respiratory: no respiratory distress. Abdomen: nondistended, nontender, no guarding. Psych: affect and mood appropriate, normal interaction, good eye contact. FHT: 140 bpm baseline, moderate variability, accelerations present, no decelerations. [place]: Occasional BPP: 12/29 Assessment and plan 22-year-old -0-0-1 at 34 weeks 3 days gestation with decreased movement 1. Decreased movement. -Feeling some baby movement since arrival. -Reactive NST. Normal BPP. 2. Chronic hypertension - surveillance previously ordered
[2022-09-09 09:21] VITALS: BP 116/61
--- NOTE | 2022-09-09 09:28 | Ultrasound Report ---
PROCEDURE: OB Biophysical Profile INDICATIONS: decreased movement OUTSIDE/PRIOR DATING DATA: Last menstrual period (LMP): 01/11/2022. LMP-based estimated date of delivery (JUAN): 10/18/2022. First dating scan (date and location): 06/01/2022, physician office. Estimated date of delivery (JUAN) from first dating scan: 10/18/2022. The below data below was generated using the clinical JUAN of 10/18/2022 TECHNIQUE: Real-time scanning was performed of the fetus, with image documentation and biometric sia surements. Biophysical profile was also obtained. Endovaginal scanning: Not performed COMPARISON: 07/01/2022 FINDINGS: General: A single living intrauterine gestation is present. Presentation: Cephalic Placenta: Placental position is posterior, without previa. Amniotic fluid index: 7.5 cm, within normal limits for gestational age. heart rate: 147 beats per minute. Maternal cervical canal: Not seen a late stage of Estimated gestational age from initial scan: 34 weeks 3 days Biophysical profile: Tone: 2 points. Movement: 2 points. Respiration: 2 points. Largest pocket of fluid: 2 points. Umbilical artery Doppler: S/D ratio equals 2.3, within normal limits IMPRESSION: 1. Normal ultrasound biophysical profile, scoring 8 out of 8 2. Normal umbilical artery Doppler. Reviewed by: Surinder Khan MD on 09/09/2022 9:27 AM PDT Approved by: Surinder Khan MD on 09/09/2022 9:27 AM PDT Station ID: [id number]
== END 2022-09-09 09:33 | disposition home or self-care (01) ==
LOC: WFO 07:09 → FBP 07:10 → WFO 09:33
PROVIDERS: ATTEND Obstetrics & Gynecology
DX: O36.8130 Decreased fetal movements, third trimester, not applicable or unspecified (principal); O16.3 Unspecified maternal hypertension, third trimester; Z3A.34 34 weeks gestation of pregnancy
CPT/HCPCS: 59025

== ENCOUNTER 2022-09-14 12:45 | Outpatient (CLI) | payer OTHER ==
[2022-09-14 13:05] VITALS: BP 127/65
--- NOTE | 2022-09-14 14:08 | PROCEDURE REPORT ---
- HPI Diagnosis/Indication for NST: Pre- Hypertension Current EDU 10/18/22 Gestation 35 Weeks and 1 Days 2 Para 1 Vital Signs Temperature 97.9 F 09/14/22 13:02 Heart Rate 92 09/14/22 13:02 Respiratory Rate 16 09/14/22 13:02 Blood Pressure 127/65 09/14/22 13:02 Temperature 97.9 F 09/14/22 13:02 Heart Rate 92 09/14/22 13:02 Respiratory Rate 16 09/14/22 13:02 Blood Pressure 127/65 09/14/22 13:02 O2 Saturation If not protocol: Oxygen Flow, liters/minute - NST Procedure NST Procedure Start Date 09/14/22 Start Time 13:35 Stop Time 14:07 Vibroacoustic Stimulation Used No Patient States Movement Yes - Results and Plan Plan: Patient is a 22-year-old G2, P1 at 35 weeks 1 day gestation here for scheduled NST. NST Performed 09/14/2022 NST Read 09/14/2022 FHT: 155 bpm baseline, moderate variability, accelerations present, no decelerations. Reactive NST [place]: Quiescent Diagnosis 35 weeks gestation Chronic hypertension Continue with twice weekly NST.
== END 2022-09-14 14:15 | disposition home or self-care (01) ==
LOC: WFO 12:45 → FBP 12:48 → WFO 14:15
PROVIDERS: ATTEND Obstetrics & Gynecology
DX: O10.913 Unspecified pre-existing hypertension complicating pregnancy, third trimester (principal); Z3A.35 35 weeks gestation of pregnancy
CPT/HCPCS: 59025

== ENCOUNTER 2022-09-17 08:47 | Outpatient (CLI) | payer OTHER ==
[2022-09-17 09:10] VITALS: BP 136/85
--- NOTE | 2022-09-21 08:06 | PROCEDURE REPORT ---
- HPI Diagnosis/Indication for NST: Gestational Hypertension Current EDU 10/18/22 Gestation 35 Weeks and 4 Days 2 Para 1 Vital Signs Temperature 98.8 F 09/17/22 09:03 Heart Rate 93 09/17/22 09:03 Respiratory Rate 20 09/17/22 09:03 Blood Pressure 136/85 H 09/17/22 09:03 Temperature 98.6 F 09/17/22 09:03 Heart Rate 100 09/17/22 09:03 Respiratory Rate 20 09/17/22 09:03 Blood Pressure 136/85 H 09/17/22 09:03 O2 Saturation If not protocol: Oxygen Flow, liters/minute - NST Procedure NST Procedure Start Date 09/17/22 Start Time 08:53 Stop Time 10:30 Vibroacoustic Stimulation Used Yes: 1x Patient States Movement Yes EFM: 140s, moderate variability, positive accelerations, no decelerations [place]: no contractions NST reactive/Cat 1 Performed and read 09/17 - Results and Plan Findings/Impression: 22yo at 35.4 presenting for scheduled NST for chronic hypertension - NST reactive - BPP 12/29
== END 2022-09-17 11:05 | disposition home or self-care (01) ==
LOC: WFO 08:47 → FBP 08:49 → WFO 11:05
PROVIDERS: ATTEND Obstetrics & Gynecology
DX: O13.3 Gestational [pregnancy-induced] hypertension without significant proteinuria, third trimester (principal); Z3A.35 35 weeks gestation of pregnancy
CPT/HCPCS: 59025; 99215

== ENCOUNTER 2022-09-19 14:34 | Outpatient (CLI) | payer OTHER ==
--- NOTE | 2022-09-19 15:23 | PROCEDURE REPORT ---
- HPI Diagnosis/Indication for NST: Decreased movement Vital Signs Temperature 98.8 F 09/19/22 14:46 Heart Rate 97 09/19/22 14:46 Respiratory Rate 16 09/19/22 14:46 Blood Pressure 135/95 H 09/19/22 14:46 Temperature 98.8 F 09/19/22 14:46 Heart Rate 97 09/19/22 14:46 Respiratory Rate 16 09/19/22 14:46 Blood Pressure 135/95 H 09/19/22 14:46 O2 Saturation If not protocol: Oxygen Flow, liters/minute - NST Procedure NST Procedure Start Time 08:53 Stop Time 10:30 35+6 weeks decreased movement since last night 145, moderate variability, +accels, no decels reactive NST Intermittent contractions, palpating mild 1/40/-3 cervical exam - Results and Plan Plan: decreased movement since last night wellbeing reassuring on NST Patient did not take procardia today- denies headache, changes in vision, RUQ pain, counseled on importance of medication compliance.
[2022-09-19 16:25] VITALS: BP 128/85
[2022-09-19] MEDS ORDERED: LACTATED RINGERS 1,000 ML ONE (17:08)
[2022-09-19] MEDS ORDERED: ceFAZolin 1 GM VIAL ONE (17:51)
== END 2022-09-19 16:05 | disposition home or self-care (01) ==
LOC: WFO 14:34 → FBP 14:37 → WFO 16:05
PROVIDERS: ATTEND Obstetrics & Gynecology Obstetrics
DX: O36.8130 Decreased fetal movements, third trimester, not applicable or unspecified (principal); Z3A.35 35 weeks gestation of pregnancy
CPT/HCPCS: 59025; 99215; J7120

== ENCOUNTER 2022-09-19 16:54 | Inpatient (IN) | payer OTHER ==
[2022-09-19] MEDS ORDERED: LACTATED RINGERS 1,000 ML IV ONE ×3 (17:07→19:07)
--- NOTE | 2022-09-19 17:30 | HISTORY & PHYSICAL EXAMINATION ---
Admit History - Visit Reason Visit Reason: Contractions, Membranes rupture - : 2 Premature: 1 Care: positive: [facility] Risk/History: positive: labor <37 weeks Complications This : positive: Other (history of previous labor with high transverse incision) Smoking Status: Never smoker - Mother's Labs Mother's Blood Type: positive: A Mother's RH: positive: Positive Rubella Status: positive: Immune Meds/Allgy - Home Medications Home Medications: Ambulatory Orders Medication Instructions Recorded Confirmed Pnv No.95/Ferrous Fum/Folic AC 1 each PO DAILY 09/01/20 09/01/20 [ Tablet] - Allergies Allergies/Adverse Reactions: Allergies Allergy/AdvReac Type Severity Reaction Status Date / Time No Known Drug Allergies Allergy Verified 09/01/20 17:45 Physical - Abdominal Exam Contraction Frequency (min/apart): every 4 minutes Contraction Intensity: positive: Moderate - Monitoring Strip Review: positive: Category I - Presentation Presentation: positive: Vertex - Vaginal Exam Dilation (in cm): 3 Station: positive: 1 Cervical Position: positive: Anterior Plan for Labor - Plan For Labor Plan for Labor: Patient with SROM shortly after leaving triage, returned with leakage of fluid and increased contractions Patient consented for repeat section. Risks, benefits, and alternatives discussed. All questions answered. Informed consent signed.
[2022-09-19] MEDS ORDERED: ceFAZolin 2 GM in SODIUM CHLORIDE 0.9% 100ML 100 ML IV STA (17:33)
[2022-09-19] MEDS ORDERED: fentaNYL 100 MCG/2 ML VIAL ONE (17:46)
[2022-09-19] MEDS ORDERED: ONDANSETRON 4 MG/2 ML VIAL ONE (18:25)
[2022-09-19] MEDS ORDERED: ACETAMINOPHEN 1,000 MG/100 ML 1,000 MG/100 ML BAG IV ONE (18:25)
[2022-09-19] MEDS ORDERED: PHENYLEPHRINE 10 MG/ML VIAL ONE (18:25)
[2022-09-19] MEDS ORDERED: ROPIVACAINE 0.5% PF 20 ML VIAL ONE ×2 (18:25→18:47)
[2022-09-19] MEDS ORDERED: OXYTOCIN 10 UNIT/ML VIAL ONE (18:25)
[2022-09-19] MEDS ORDERED: ePHEDrine 50 MG/ML VIAL IVP ONE (18:25)
[2022-09-19] MEDS: ACETAMINOPHEN 500 MG TABLET PO SCH (18:30)
[2022-09-19] MEDS ORDERED: DEXAMETHASONE 4 MG/ML VIAL ONE (18:45)
[2022-09-19] MEDS ORDERED: SODIUM CHLORIDE 0.9% 10 ML VIAL IVP ONE (18:46)
[2022-09-19 18:49] LABS: RUPTURE OF MEMBRANES PLUS POSITIVE (NEGATIVE)
--- NOTE | 2022-09-19 19:00 | DELIVERY NOTE ---
Delivery Note - Infant Delivery Method Infant Delivery Method: positive: Repeat - Presentation Presentation: positive: Vertex - Nuchal Cord Nuchal Cord: positive: None - Anesthetic Anesthetic Type: - Delivery Outcome Delivery Outcome: positive: Livebirth - [place] sex: positive: Male - Cord Cord: positive: 3 vessels - Placenta Placenta: positive: Intact, Manual removal - Estimated Blood Loss Estimated Blood Loss (in cc): 600 - Post Delivery Events Post Delivery Events: positive: No post delivery events
[2022-09-19] MEDS ORDERED: KETOROLAC 30 MG/ML VIAL ONE (19:02)
--- NOTE | 2022-09-19 19:03 | OPERATIVE REPORT ---
Operative Report - General Admit Date: 09/19/22 Procedure Date: 09/19/22 Planned Procedure: Repeat section Pre-Op Diagnosis: 1. labor 35+6 weeks 2. Spontaneous rupture of membranes Procedure Performed: Repeat section Post Op Diagnosis: same as pre-op - Procedure Note Primary Surgeon: Sierra Silva MD Secondary Surgeon: Va Villanueva APRN Anesthesia Provider: Madelin Yeung CRNA Anesthesia Technique: Spinal Pathology: placenta Estimated Blood Loss (mL): 600 Urine Output (mL): 50 - Other Other Information/Narrative: Preoperative Diagnosis: 1. IUP at 35+6 weeks 2. labor 3. Spontaneous rupture of membranes Postoperative Diagnosis: same Procedure: Repeat Low Transverse Section Surgeon: Va Villanueva APRN Anesthesia: Spinal EBL: 600 mL Urine output: 50 mL Drains: yeung Complications: none Specimens: pathology Findings: Normal uterus, fallopian tubes, and ovaries bilaterally Liveborn male Indication: The risks, benefits, and alternatives to delivery were discussed. Risks include but are not limited to: bleeding, infection, risk of anesthesia, and risk of injury to other organs/anatomy. The patient gave consent prior to the procedure. Procedure: The patient was taken to the OR where a final time out was performed per standard protocol. After spinal anesthesia was placed, she was positioned on the table in the dorsal supine position with a left tilt. The abdomen was prepped and draped in the typical sterile fashion. Spinal anesthesia was found to be adequate. A Pfannensteil incision was made with the scalpel and carried down to the fascia. The fascia was incised in the midline and the incision extended bilaterally. The fascia was dissected off of the underlying rectus muscles superiorly and inferiorly. The rectus were and the peritoneum entered bluntly. The peritoneal incision was extended. The bladder blade was then placed. A transverse incision was made with the scalpel in the lower uterine segment and extended with traction in a cephalad-caudad direction. The infant was then delivered from cephalic presentation in an uncomplicated fashion using standard maneuvers. The infant was immediately vigorous. The 's nose and mouth were bulb suctioned. After 60 seconds pulsation, the cord was doubly clamped and cut and the infant handed to pediatric staff. Cord blood was obtained. The placenta then delivered using intra abdominal fundal massage and gentle cord traction. The uterus was then exteriorized.The uterus was inspected and wiped of all debris. The edges of the uterine incision were identified. The uterus was closed in two layers. The first layer was performed using 0-vicryl in a running, locking fashion followed by a second running suture for hemostasis. The uterus was then returned to the abdomen.The incision was inspected and found to be hemostatic. The gutters were cleared of clots. The fascia and rectus were inspected and found to be hemostatic. The fascia was closed with a running 0- Vicryl stitch. The subcutaneous tissues were irrigated and hemostasis obtained. The subcutaneous tissues were re-approximated with 2-0 vicryl in a running fashion. The skin was closed with subcutaneous suture with 4.0 monocryl. An silver dressing was applied. The patient tolerated the procedure well. All sponge, lap, needle, and instrument counts were correct times two. The patient was taken to the recovery room in stable condition.
[2022-09-19] MEDS ORDERED: METOCLOPRAMIDE 10 MG/2 ML VIAL IVP PRN (19:13)
[2022-09-19] MEDS ORDERED: NALOXONE 0.4 MG/ML VIAL IVP PRN ×2 (19:13→19:17)
[2022-09-19] MEDS ORDERED: fentaNYL 100 MCG/2 ML VIAL IVP PRN (19:13)
[2022-09-19] MEDS ORDERED: HYDROmorphone 0.5 MG/0.5 ML SYRINGE IVP PRN (19:13)
[2022-09-19] MEDS ORDERED: ePHEDrine 50 MG/ML VIAL IVP PRN (19:13)
[2022-09-19] MEDS ORDERED: MORPHINE 2 MG/ML CARPUJECT IVP PRN (19:13)
[2022-09-19] MEDS ORDERED: ONDANSETRON 4 MG/2 ML VIAL IVP PRN (19:13)
[2022-09-19] MEDS ORDERED: ATROPINE ABBOJECT 1 MG/10 ML SYRINGE IVP PRN (19:13)
[2022-09-19] MEDS: KETOROLAC 30 MG/ML VIAL IVP SCH (19:15)
--- NOTE | 2022-09-19 19:15 | ANESTHESIA ---
Pre-Anesthesia VS, & Labs - Diagnosis previous c/section in active labor - Procedure emergency Vital Signs: Temp Pulse Resp BP Pulse Ox O2 Flow Rate 36.2 C L 73 20 113/66 100 09/19/22 19:07 09/19/22 19:07 09/19/22 19:07 09/19/22 19:07 09/19/22 19:07 Height: 5 ft 3 in - NPO Other (3 hrs) - Is Patient ?: Yes Home Medications and Allergies Active Medications Azithromycin 1,000 mg/ Sodium (Chloride) 250 mls @ 250 mls/hr IV DAILY SAUL Pnv No.95/Ferrous Fum/Folic AC [ Tablet] 1 each PO DAILY 09/01/20 Allergies/Adverse Reactions: Allergies Allergy/AdvReac Type Severity Reaction Status Date / Time No Known Drug Allergies Allergy Verified 09/01/20 17:45 Anes History & Medical History - Anesthetic History Anesthesia Complications: reports: No previous complications Family history of Anesthesia Complications: Denies Family history of Malignant Hyperthermia: Denies - Medical History Cardiovascular: reports: None Pulmonary: reports: None Gastrointestinal: reports: GERD, Other Urinary: reports: Chronic bladder infection Neuro: reports: None Musculoskeletal: reports: None Endocrine/Autoimmune: reports: None Blood Disorders: reports: None Skin: reports: None Smoking Status: Never smoker - Surgical History General: reports: Cholecystectomy Eyes Ears Nose Throat (EENT): reports: Tonsil/Adenoidectomy - Obstetrical History : 2 Events: reports: labor <37 weeks Complications: reports: Other (history of previous labor with high transverse incision) Exam General: Alert, Oriented x3, Cooperative, Moderate distress Dental: WNL Mouth Openin Fingerbreadth Neck Mobility: Normal Mallampati classification: III Thyromental Distance: less than 4 cm Respiratory: Lungs clear Cardiovascular: Regular rate Plan Anesthesia Type: Spinal, Transverse Abdominis Plane (TAP) Block Regional Block: Per Surgeon's request for Post Op pain control Consent for Procedure(s) Verified and Reviewed: Yes Code Status: Attempt Resuscitation ASA classification: 2-Mild systemic disease Is this case an emergency?: Yes
--- NOTE | 2022-09-19 19:16 | ANESTHESIA POST OP EVALUATION ---
Anesthesia Post Eval - Post Anesthesia Eval Vitals: Last Vital Signs Temp 36.2 C L 09/19/22 19:07 Pulse 73 09/19/22 19:07 Resp 20 09/19/22 19:07 BP 113/66 09/19/22 19:07 Pulse Ox 100 09/19/22 19:07 O2 Flow Rate CV Function Including HR & BP: Stable Pain Control: Satisfactory Nausea & Vomiting: Negative Mental Status: Baseline Respiratory Status: Airway Patent Hydration Status: Satisfactory Anesthesia Complications: None
[2022-09-19] MEDS ORDERED: LABETALOL 20 MG/4 ML SYRINGE IVP PRN ×3 (19:17)
[2022-09-19] MEDS ORDERED: hydrALAZINE INJ 20 MG/ML VIAL IVP PRN ×2 (19:17)
[2022-09-19] MEDS ORDERED: OXYTOCIN/SODIUM CHLORIDE 500 ML IV PRN (19:17)
[2022-09-19] MEDS ORDERED: oxyCODONE 5 MG TABLET PO PRN (19:17)
[2022-09-19] MEDS ORDERED: SIMETHICONE CHEW 80 MG TABLET PO PRN (19:17)
[2022-09-19] MEDS ORDERED: NIFEdipine 10 MG CAPSULE PO PRN (19:17)
[2022-09-19] MEDS ORDERED: AZITHROMYCIN INJ 500 MG in SODIUM CHLORIDE 0.9% 250 ML IV SCH (19:43)
[2022-09-19] MEDS ORDERED: LACTATED RINGERS 1,000 ML IV SCH (20:00)
[2022-09-19 22:35] LABS: BASOPHILS % (AUTO) 0.3 %; EOSINOPHILS % (AUTO) 0.1 %; HCT - HEMATOCRIT 36.4 % (37.0-47.0); HGB - HEMOGLOBIN 11.9 g/dL (12.0-16.0); LYMPHOCYTES # (AUTO) 3.4 10^3/uL (1.5-3.5); LYMPHOCYTES % (AUTO) 23.4 %; MEAN CORPUSCULAR HEMOGLOBIN 29.8 pg (27.0-31.0); MEAN CORPUSCULAR HGB CONC 32.7 g/dL (32.0-36.0); MEAN PLATELET VOLUME 11.8 fL (7.9-10.8); MONOCYTES # (AUTO) 0.7 10^3/uL (0.0-1.0); NEUTROPHILS # (AUTO) 10.4 10^3/uL (1.5-6.6); NEUTROPHILS % (AUTO) 70.9 %; PLT - PLATELET COUNT 288 10^3/uL (130-450); WHITE BLOOD COUNT 14.7 x10^3/uL (4.8-10.8)
[2022-09-19] MEDS: DOCUSATE SODIUM 100 MG CAPSULE PO SCH (23:14)
[2022-09-20] MEDS: KETOROLAC 30 MG/ML VIAL IVP SCH ×2 (01:27→08:20)
[2022-09-20] MEDS: ACETAMINOPHEN 500 MG TABLET PO SCH ×3 (03:05→20:12)
[2022-09-20 05:35] LABS: HCT - HEMATOCRIT 29.5 % (37.0-47.0); HGB - HEMOGLOBIN 9.8 g/dL (12.0-16.0); MEAN CORPUSCULAR HEMOGLOBIN 30.3 pg (27.0-31.0); MEAN CORPUSCULAR HGB CONC 33.2 g/dL (32.0-36.0); MEAN CORPUSCULAR VOLUME 91.3 fL (81.0-99.0); MEAN PLATELET VOLUME 10.6 fL (7.9-10.8); RED BLOOD COUNT 3.23 10^6/uL (4.20-5.40); RED CELL DISTRIBUTION WIDTH 13.9 % (12.0-15.0); WHITE BLOOD COUNT 19.5 x10^3/uL (4.8-10.8)
[2022-09-20] MEDS: DOCUSATE SODIUM 100 MG CAPSULE PO SCH ×2 (08:25→21:47)
[2022-09-20] MEDS ORDERED: AZITHROMYCIN INJ 1,000 MG in SODIUM CHLORIDE 0.9% 250 ML IV SCH (09:00)
--- NOTE | 2022-09-20 09:23 | PROVIDER PROGRESS NOTE ---
Subjective - Prog Note Date Prog Note Date: 09/20/22 Prog Note Time: 09:21 - Subjective Subjective: Patient is POD#1 s/p repeat section secondary to history of previous section with high transverse incision, labor, and rupture of membranes. has been complicated by chronic hypertension. Patient is doing well this morning. Pain is well controlled. Ambulating, tolerating regular diet. Spontaneously voiding and passing gas. Objective - Vital Signs/Intake & Output Reviewed Vital Signs: Yes Vital Signs: Vital Signs x48h Temp Pulse Resp BP Pulse Ox 09/20/22 08:24 98.4 F 77 18 108/58 L 99 09/20/22 06:33 97.5 F L 73 20 115/66 98 09/20/22 02:45 99.0 F 93 17 122/79 100 Intake & Output: Intake & Output 09/17/22 09/18/22 09/19/22 09/20/22 23:59 23:59 23:59 23:59 Intake Total 1250 2368 Output Total 50 2240 Balance 1200 128 - Objective General Appearance: positive: No acute distress Respiratory: positive: No respiratory distress, Breath sounds nml Cardiovascular: positive: Regular rate & rhythm Abdomen: positive: Non-tender (firm fundus below umbilicus, dressing in place) Back: positive: Nml inspection Skin: positive: Color nml Extremities: positive: Non-tender, Pedal edema (trace) - Lab Results Fish Bones: 09/20/22 05:28 Other Labs: Lab Results x24hrs 09/20/22 09/19/22 09/19/22 Range/Units 05:28 17:42 17:30 WBC 19.5 H 14.7 H (4.8-10.8) x10^3/uL RBC 3.23 L 4.00 L (4.20-5.40) 10^6/uL Hgb 9.8 L 11.9 L (12.0-16.0) g/dL Hct 29.5 L 36.4 L (37.0-47.0) % MCV 91.3 91.0 (81.0-99.0) fL MCH 30.3 29.8 (27.0-31.0) pg MCHC 33.2 32.7 (32.0-36.0) g/dL RDW 13.9 14.0 (12.0-15.0) % Plt Count 244 288 (130-450) 10^3/uL MPV 10.6 11.8 H (7.9-10.8) fL Neut # (Auto) 10.4 H (1.5-6.6) 10^3/uL Lymph # (Auto) 3.4 (1.5-3.5) 10^3/uL [place] # (Auto) 0.7 (0.0-1.0) 10^3/uL Eos # (Auto) 0.0 (0.0-0.7) 10^3/uL Baso # (Auto) 0.0 (0.0-0.1) 10^3/uL Absolute Nucleated RBC 0.00 x10^3/uL Nucleated RBC % 0.0 /100WBC Membranes Rupture (NEGATIVE) Blood Type A POSITIVE Antibody Screen NEGATIVE 09/19/22 Range/Units 17:15 WBC (4.8-10.8) x10^3/uL RBC (4.20-5.40) 10^6/uL Hgb (12.0-16.0) g/dL Hct (37.0-47.0) % MCV (81.0-99.0) fL MCH (27.0-31.0) pg MCHC (32.0-36.0) g/dL RDW (12.0-15.0) % Plt Count (130-450) 10^3/uL MPV (7.9-10.8) fL Neut # (Auto) (1.5-6.6) 10^3/uL Lymph # (Auto) (1.5-3.5) 10^3/uL [place] # (Auto) (0.0-1.0) 10^3/uL Eos # (Auto) (0.0-0.7) 10^3/uL Baso # (Auto) (0.0-0.1) 10^3/uL Absolute Nucleated RBC x10^3/uL Nucleated RBC % /100WBC Membranes Rupture POSITIVE A (NEGATIVE) Blood Type Antibody Screen Assessment/Plan - Problem List (1) Delivery by section Impression: 1. day 1: routine care 2. acute blood loss anemia: iron 3. chronic hypertension: was on nifedipine during , BPs have been normal , continue to monitor
[2022-09-20] MEDS: IBUPROFEN 600 MG TABLET PO SCH (20:14)
[2022-09-21] MEDS: IBUPROFEN 600 MG TABLET PO SCH ×4 (01:47→20:52)
[2022-09-21] MEDS: ACETAMINOPHEN 500 MG TABLET PO SCH ×3 (03:43→20:53)
[2022-09-21] MEDS: DOCUSATE SODIUM 100 MG CAPSULE PO SCH ×2 (08:19→20:53)
--- NOTE | 2022-09-21 11:45 | PROVIDER PROGRESS NOTE ---
Subjective - Prog Note Date Prog Note Date: 09/21/22 Prog Note Time: 11:43 - Subjective Pt reports feeling: Improved Subjective: Patient is POD#2 s/p repeat section for labor, SROM. Patient is doing well today. Ambulating, tolerating regular diet. Spontaneously voiding, passing flatus. Objective - Vital Signs/Intake & Output Reviewed Vital Signs: Yes Vital Signs: Vital Signs x48h Temp Pulse Resp BP Pulse Ox 09/21/22 08:29 97.7 F 78 16 111/71 100 09/21/22 03:52 97.3 F L 71 20 114/56 L 100 Intake & Output: Intake & Output 09/18/22 09/19/22 09/20/22 09/21/22 23:59 23:59 23:59 23:59 Intake Total 1250 2728 Output Total 50 2240 Balance 1200 488 - Objective General Appearance: positive: No acute distress Respiratory: positive: Breath sounds nml Cardiovascular: positive: Regular rate & rhythm Abdomen: positive: Non-tender (firm fundus below umbilicus, dressing in place) Extremities: positive: Pedal edema (trace) - Lab Results Fish Bones: 09/20/22 05:28 Assessment/Plan - Problem List (1) Delivery by section Impression: POD#2 uncomplicated course Anticipate discharge to home tomorrow
[2022-09-21] MEDS: FERROUS SULFATE 325 MG TABLET PO SCH (17:22)
[2022-09-22] MEDS: IBUPROFEN 600 MG TABLET PO SCH ×2 (03:11→08:38)
[2022-09-22] MEDS: ACETAMINOPHEN 500 MG TABLET PO SCH (04:54)
[2022-09-22] MEDS: DOCUSATE SODIUM 100 MG CAPSULE PO SCH (08:38)
[2022-09-22] MEDS: FERROUS SULFATE 325 MG TABLET PO SCH (08:39)
--- NOTE | 2022-09-22 09:47 | PROVIDER PROGRESS NOTE ---
Subjective - Prog Note Date Prog Note Date: 09/22/22 - Subjective Subjective: POD#3 s/p repeat section. Patient doing well this morning. Ambulating, tolerating PO. Spontaneously voiding, passing flatus. Pain is well controlled. Objective - Vital Signs/Intake & Output Reviewed Vital Signs: Yes Vital Signs: Vital Signs x48h Temp Pulse Resp BP Pulse Ox 09/22/22 04:39 98.8 F 83 18 127/64 99 Intake & Output: Intake & Output 09/19/22 09/20/22 09/21/22 09/22/22 23:59 23:59 23:59 23:59 Intake Total 1250 2728 350 500 Output Total 50 2240 Balance 1200 488 350 500 - Objective General Appearance: positive: No acute distress Respiratory: positive: Breath sounds nml Cardiovascular: positive: Regular rate & rhythm Abdomen: positive: Non-tender (firm fundus below umbilicus, dressing in place) Skin: positive: Color nml Extremities: positive: Pedal edema (1+) - Lab Results Fish Bones: 09/20/22 05:28 Assessment/Plan - Problem List (1) Delivery by section Impression: POD#3 discharge to home today acute blood loss anemia: iron
--- NOTE | 2022-09-22 09:51 | Discharge Plan ---
Discharge Plan Problem Reviewed?: Yes Disposition: Home, Self Care Condition: Good Prescriptions: oxyCODONE [Roxicodone] 5 mg PO Q4HR PRN #21 tab PRN Reason: Severe Pain 6 -10 Ibuprofen [Motrin] 600 mg PO Q6HR #30 tab Docusate Sodium 100Mg Capsule [Colace 100Mg Capsule] 200 mg PO BID #30 cap Ferrous Sulfate [Feosol] 325 mg PO BIDWM #60 tab Diet: Regular Activity Restrictions: No heavy lifting Driving Restrictions: Yes (no driving while taking pain medication) No Smoking: If you smoke, Please STOP! Call for help.
--- NOTE | 2022-09-22 09:57 | DISCHARGE SUMMARY ---
"Discharge Summary Admit Date: 09/19/22 Discharge Date: 09/22/22 Discharging Provider: Ricardo Primary Care Provider: Daniele Code Status: Attempt Resuscitation Condition at Discharge: Good Discharge Disposition: 01 Home, Self Care - DIAGNOSES Admission Diagnoses: 1. labor 2. spontaneous rupture of membranes 3. history of high transverse section - HPI History of Present Illness: Patient is a who presented in labor with spontaneous rupture of membranes. Patient underwent a repeat section. She had an uncomplicated postoperative course and was discharged to home on POD#2. - CONSULTS | PROCEDURES Procedures: repeat section - HOSPITAL COURSE Hospital Course: Patient underwent an uncomplicated repeat section. She had an uncomplicated course and was discharged to home on POD#2. - ALLERGIES Allergies/Adverse Reactions: Allergies Allergy/AdvReac Type Severity Reaction Status Date / Time No Known Drug Allergies Allergy Verified 09/01/20 17:45 - MEDICATIONS Home Medications: Ambulatory Orders Medication Instructions Recorded Confirmed Docusate Sodium 100Mg Capsule 200 mg PO BID #30 cap 09/22/22 [Colace 100Mg Capsule] Ferrous Sulfate [Feosol] 325 mg PO BIDWM #60 tab 09/22/22 Ibuprofen [Motrin] 600 mg PO Q6HR #30 tab 09/22/22 oxyCODONE [Roxicodone] 5 mg PO Q4HR PRN #21 tab 09/22/22 - PHYSICAL EXAM AT DISCHARGE General Appearance: positive: No acute distress Respiratory: positive: Breath sounds nml Cardiovascular: positive: Regular rate & rhythm Abdomen: positive: Non-tender (firm fundus below umbilicus) Extremities: positive: Pedal edema - LABS Result Diagrams: 09/20/22 05:28 - FOLLOW UP Follow Up: folllow up is scheduled with Dr. Sanabria"
[2022-09-22 10:19] VITALS: BP 118/76
--- NOTE | 2022-09-22 18:10 | Discharge Plan ---
Discharge Plan Disposition: 01 Home, Self Care Condition: Good Prescriptions: oxyCODONE [Roxicodone] 5 mg PO Q4HR PRN #21 tab PRN Reason: Severe Pain 6 -10 Ibuprofen [Motrin] 600 mg PO Q6HR #30 tab Docusate Sodium 100Mg Capsule [Colace 100Mg Capsule] 200 mg PO BID #30 cap Ferrous Sulfate [Feosol] 325 mg PO BIDWM #60 tab Activity Restrictions: No heavy lifting Driving Restrictions: Yes (no driving while taking pain medication) No Smoking: If you smoke, Please STOP! Call for help.
== END 2022-09-22 11:15 | disposition home or self-care (01) | DRG 787 ==
LOC: WFO 16:54 → FBP 16:58 → WFO 18:17
PROVIDERS: ADMIT Obstetrics & Gynecology Obstetrics; ATTEND Obstetrics & Gynecology Obstetrics
PROC: 10D00Z1 Extraction of Products of Conception, Low, Open Approach (ICD-10-PCS; principal; 2022-09-19 17:45)
DX: O60.14X0 Preterm labor third trimester with preterm delivery third trimester, not applicable or unspecified (principal); D62 Acute posthemorrhagic anemia; O10.92 Unspecified pre-existing hypertension complicating childbirth; Z3A.35 35 weeks gestation of pregnancy; Z37.0 Single live birth; O90.81 Anemia of the puerperium; O34.211 Maternal care for low transverse scar from previous cesarean delivery
CPT/HCPCS: 36415; 84112; 85025; 85027; 86850; 86900; 86901; A9270; J0131; J2795; J7120; 99215

== ENCOUNTER 2022-11-03 08:00 | Outpatient (CLI) | payer OTHER ==
--- NOTE | 2022-11-03 16:19 | XRAY Report ---
PROCEDURE: Foot 3 View LT INDICATIONS: LEFT FOOT CYST TECHNIQUE: 3 views of the foot were acquired. COMPARISON: None. FINDINGS: Bones: No fractures or dislocations. No suspicious bony lesions. Soft tissues: No suspicious soft tissue calcifications or masses. Mild focal prominence of the romeo gene soft tissue at the area of concern. No underlying osseous abnormality. IMPRESSION: Focal dorsal soft tissue prominence. Etiology is indeterminate on the basis of this exam. No underlyi ng osseous abnormality. If concern persists, further evaluation MRI is recommended. Reviewed by: Jazmin Hernadez MD on 11/03/2022 4:18 PM PDT Approved by: Jazmin Hernadez MD on 11/03/2022 4:18 PM PDT Station ID: [id number]
== END 2022-11-03 23:59 | disposition home or self-care (01) ==
LOC: DI.WOS 08:00
PROVIDERS: ATTEND Physician Assistant Surgical
DX: M67.472 Ganglion, left ankle and foot (principal)

== ENCOUNTER 2022-12-16 10:40 | Day surgery (SDC) | payer OTHER ==
[~2022-12-16 10:40] MED LIST changes: +ACETAMINOPHEN 500 MG TABLET PO ONE; +CELECOXIB 100 MG CAPSULE PO ONE; +ceFAZolin 2 GM VIAL ONE; -ceFAZolin 2 GM/50 ML 2 GM/50 ML BAG IV ONE
[2022-12-16 11:18] LABS: HCG UR QUAL NEGATIVE
[2022-12-16] MEDS ORDERED: fentaNYL 100 MCG/2 ML VIAL ONE (11:19)
[2022-12-16] MEDS ORDERED: LACTATED RINGERS 1,000 ML IV ONE ×2 (11:22→12:50)
[2022-12-16] MEDS ORDERED: METOCLOPRAMIDE 10 MG/2 ML VIAL IVP PRN (11:23)
[2022-12-16] MEDS ORDERED: MORPHINE 2 MG/ML CARPUJECT IVP PRN (11:23)
[2022-12-16] MEDS ORDERED: ePHEDrine 50 MG/ML VIAL IVP PRN (11:23)
[2022-12-16] MEDS ORDERED: ATROPINE ABBOJECT 1 MG/10 ML SYRINGE IVP PRN (11:23)
[2022-12-16] MEDS ORDERED: ONDANSETRON 4 MG/2 ML VIAL IVP PRN ×2 (11:23→12:48)
[2022-12-16] MEDS ORDERED: NALOXONE 0.4 MG/ML VIAL IVP PRN (11:23)
[2022-12-16] MEDS ORDERED: HYDROmorphone 0.5 MG/0.5 ML SYRINGE IVP PRN (11:23)
[2022-12-16] MEDS ORDERED: fentaNYL 100 MCG/2 ML VIAL IVP PRN (11:23)
--- NOTE | 2022-12-16 11:23 | ANESTHESIA ---
Pre-Anesthesia VS, & Labs - Diagnosis L foot ganglion cyst - Procedure L foot ganglion cyst removal Vital Signs: Temp Pulse Resp BP Pulse Ox O2 Flow Rate 36 C L 70 16 125/74 98 12/16/22 11:10 12/16/22 11:10 12/16/22 11:10 12/16/22 11:10 12/16/22 11:10 Height: 5 ft 3 in Weight (kg): 87 kg Body Mass Index: 34.0 BMI Classification: Obese - NPO >8 hours - Is Patient ?: No Home Medications and Allergies Home Medications: Ambulatory Orders No Known Home Medications 12/09/22 No Known Home Medications 12/09/22 Allergies/Adverse Reactions: Allergies Allergy/AdvReac Type Severity Reaction Status Date / Time No Known Drug Allergies Allergy Verified 09/01/20 17:45 Anes History & Medical History - Anesthetic History Anesthesia Complications: reports: No previous complications Family history of Anesthesia Complications: Denies Family history of Malignant Hyperthermia: Denies - Medical History Cardiovascular: reports: None Pulmonary: reports: None Gastrointestinal: reports: GERD Urinary: reports: None Neuro: reports: None Musculoskeletal: reports: None Endocrine/Autoimmune: reports: None Blood Disorders: reports: None Skin: reports: None Smoking Status: Never smoker - Surgical History General: reports: Cholecystectomy Eyes Ears Nose Throat (EENT): reports: Tonsil/Adenoidectomy Gynecologic: reports: section Exam General: Alert, Oriented x3, Cooperative Dental: WNL Mouth Openin Fingerbreadth Neck Mobility: Normal Mallampati classification: II Thyromental Distance: 4-6 cm Respiratory: Lungs clear Cardiovascular: Regular rate Plan Anesthesia Type: General Consent for Procedure(s) Verified and Reviewed: Yes Code Status: Attempt Resuscitation ASA classification: 2-Mild systemic disease Is this case an emergency?: No
[2022-12-16] MEDS ORDERED: BUPIVACAINE 0.25% PF 30 ML VIAL ONE (11:44)
[2022-12-16] MEDS ORDERED: LACTATED RINGERS 1,000 ML IV SCH (12:00)
[2022-12-16] MEDS ORDERED: BUPIVACAINE 0.25% PF 30 ML VIAL SUBQ ONE (12:38)
--- NOTE | 2022-12-16 12:41 | OPERATIVE REPORT ---
Operative Report - General Procedure Date: 12/16/22 Planned Procedure: . Excision of dorsal foot ganglion left foot Pre-Op Diagnosis: Dorsal ganglion left midfoot Procedure Performed: Excision of dorsal ganglion left midfoot Post Op Diagnosis: Same as preoperative diagnosis - Procedure Note Primary Surgeon: Zack Alford MD Secondary Surgeon: Debbi Kearney PAC Anesthesia Provider: Jacob Genao CRNA Anesthesia Technique: General ET tube Estimated Blood Loss (mL): 10 Indications: This is a 22-year-old with a cystic mass over the dorsum of the left foot for several months that been symptomatic with activity and shoewear. Her routine radiographs are normal. She has a cystic mass located in the dorsal medial midfoot, nontender. She has had previous aspiration of the mass which suggested clear jelly fluid. She desires excision of the mass and informed consent was obtained at the office prior to surgery agreeing to the dorsal mass excision from left midfoot Findings: There is a relatively large dorsal ganglion over the left dorsal medial midfoot located between the Extensor hallucis and anterior tibial tendon. There was clear jelly fluid from the mass when the mass was punctured. This is suggestive of a ganglion cyst Complications: None - Other Other Information/Narrative: After satisfactory general anesthesia had been obtained, the patient was placed in a supine position. The left lower extremity was prepped and draped in a sterile manner in the usual fashion. A timeout procedure was performed by the entire operating room team and all were in agreement. A rubber bandage was used to exsanguinate the left leg and wrapped circumferentially 3 times over the cast over padded stockinette to act as a tourniquet. The incision was made and centered over the mass. This was a longitudinal incision. After the skin had been incised, a spreading technique was utilized to protect branches of the superficial peroneal nerve. The extensor houses was retracted in a lateral direction and the anterior tibial tendon in a medial direction. The mass was exposed by tenotomy scissors and electrocautery elevating the mass en bloc with the help of traction from an Allis clamp. The mass was removed from the dorsal capsule of the medial midfoot and sent to pathology. The tourniquet was removed, hemostasis achieved electrocautery. The wound was irrigated with normal saline and closed in layers with 2 oh for the subcutaneous and 304 subcuticular closure, Dermabond, sterile bulky foot and ankle dressing. The patient tolerated procedure well. A physician press assistant and feeder was utilized to help with prepping and draping, exposure and protection of neurovascular and tendinous structures, closure of skin and dressing application.
[2022-12-16] MEDS ORDERED: CELECOXIB 100 MG CAPSULE PO PRN (12:48)
[2022-12-16] MEDS ORDERED: oxyCODONE 5 MG TABLET PO PRN (12:48)
[2022-12-16] MEDS ORDERED: oxyCODONE 5 MG TABLET ONE (14:00)
[2022-12-16 14:16] VITALS: BP 126/75
[2022-12-16] MEDS ORDERED: ACETAMINOPHEN 500 MG TABLET PO PRN (17:20)
--- NOTE | 2022-12-17 13:42 | ANESTHESIA POST OP EVALUATION ---
Anesthesia Post Eval - Post Anesthesia Eval Vitals: Last Vital Signs Temp 36.1 C L 12/16/22 14:11 Pulse 64 12/16/22 14:11 Resp 16 12/16/22 14:11 BP 126/75 12/16/22 14:11 Pulse Ox 97 12/16/22 14:11 O2 Flow Rate CV Function Including HR & BP: Stable Pain Control: Satisfactory Nausea & Vomiting: Negative Mental Status: Baseline Respiratory Status: Airway Patent Hydration Status: Satisfactory Anesthesia Complications: None
== END 2022-12-16 10:41 | disposition home or self-care (01) ==
LOC: SDS 10:40
PROVIDERS: ATTEND Orthopaedic Surgery
PROC: 0LBW0ZZ Excision of Left Foot Tendon, Open Approach (ICD-10-PCS; principal; 2022-12-16 12:45)
DX: M67.472 Ganglion, left ankle and foot (principal); E66.9 Obesity, unspecified; Z32.02 Encounter for pregnancy test, result negative; Z68.34 Body mass index [BMI] 34.0-34.9, adult
CPT/HCPCS: 28090; 81025; A9270; J7120

== ENCOUNTER 2023-05-26 16:15 | Outpatient (CLI) | payer OTHER ==
[2023-05-26 21:02] LABS: HCT - HEMATOCRIT 39.9 % (37.0-47.0); MEAN CORPUSCULAR HEMOGLOBIN 29.3 pg (27.0-31.0); MEAN CORPUSCULAR HGB CONC 32.6 g/dL (32.0-36.0); MEAN CORPUSCULAR VOLUME 90.1 fL (81.0-99.0); MEAN PLATELET VOLUME 10.8 fL (7.9-10.8); RED BLOOD COUNT 4.43 10^6/uL (4.20-5.40); RED CELL DISTRIBUTION WIDTH 13.5 % (12.0-15.0); WHITE BLOOD COUNT 8.8 x10^3/uL (4.8-10.8)
[2023-05-26 21:40] LABS: FERRITIN 16.6 ng/mL (11.0-306.8)
[2023-05-26 22:18] LABS: ALBUMIN 4.6 g/dL (3.2-5.5); ALBUMIN/GLOBULIN RATIO 1.5 (1.0-2.2); BILIRUBIN,TOTAL 0.4 mg/dL (0.2-1.0); CALCIUM 9.9 mg/dL (8.5-10.3); CREATININE 0.9 mg/dL (0.6-1.3); TOTAL PROTEIN 7.7 g/dL (6.4-8.9)
== END 2023-05-26 16:30 | disposition home or self-care (01) ==
LOC: LAB.N 16:15
PROVIDERS: ATTEND Nurse Practitioner
DX: R42 Dizziness and giddiness (principal)
CPT/HCPCS: 36415; 80053; 82728; 85027

== ENCOUNTER 2023-08-29 03:14 | Emergency (ER) | payer OTHER ==
--- NOTE | 2023-08-29 03:30 | ED Physician Documentation ---
PD HPI ABD PAIN - Stated complaint Stated Complaint: ABD PX - Chief complaint Chief Complaint: Abd Pain - History obtained from History obtained from: Patient - Additional information Additional information: HPI from patient. Patient complains of abdominal pain, gradual onset 3 days ago. There was no inciting event and the pain was initially limited to the suprapubic area. It has gradually expanded to include entire abdomen. Pain is worse with movement and palpation. She has had nausea but no vomiting. She denies fevers, denies history of similar symptoms. Denies but says it is possible she is . Denies vaginal discharge. Review of Systems Constitutional: denies: Fever, Chills, Sweats Cardiac: reports: Reviewed and negative Respiratory: reports: Reviewed and negative GI: reports: Abdominal Pain, Nausea. denies: Abdominal Swelling, Vomiting, Constipation, Diarrhea, Hematemesis, Bloody / black stool : denies: Dysuria, Frequency Musculoskeletal: denies: Back pain PD PAST MEDICAL HISTORY - Past Medical History Past Medical History: Yes Cardiovascular: None Respiratory: None Neuro: None Endocrine/Autoimmune: None GI: GERD : None HEENT: Chronic vision loss Psych: Anxiety, Panic attacks, Post traumatic stress disorder Musculoskeletal: None Derm: None - Past Surgical History Past Surgical History: Yes General: Cholecystectomy /TOSSER: section HEENT: Tonsil/Adenoidectomy - Present Medications Home Medications: Ambulatory Orders Medication Instructions Recorded Confirmed No Known Home Medications 08/29/23 08/29/23 - Allergies Allergies/Adverse Reactions: Allergies Allergy/AdvReac Type Severity Reaction Status Date / Time No Known Drug Allergies Allergy Verified 08/29/23 04:02 - Social History Does the pt smoke?: No Smoking Status: Never smoker Does the pt drink ETOH?: No Does the pt have substance abuse?: No - Immunizations Immunizations are current?: Yes - POLST Patient has POLST: No PD ED PE NORMAL - Vitals Vital signs reviewed: Yes - General General: Alert and oriented X 3, No acute distress, Well developed/nourished - Cardiac Cardiac: RRR, No murmur - Respiratory Respiratory: No respiratory distress, Clear bilaterally - Abdomen Abdomen: Soft, Non distended, Other (mild TTP mostly in epigastrium and RLQ; no rebound nor guarding) - Back Back: No CVA TTP Results - Vitals Vitals: Vital Signs - 24 hr 08/29/23 08/29/23 03:20 06:00 Temperature 36.4 C L Heart Rate 76 65 Respiratory 18 18 Rate Blood Pressure 140/88 H 96/59 L O2 Saturation 100 98 Oxygen O2 Source Room air - Labs Labs: Laboratory Tests 08/29/23 08/29/23 08/29/23 03:50 03:50 03:50 WBC 13.3 H RBC 4.54 Hgb 13.5 Hct 41.4 MCV 91.2 MCH 29.7 MCHC 32.6 RDW 13.1 Plt Count 240 MPV 10.7 Neut # (Auto) 8.4 H Lymph # (Auto) 3.8 H [place] # (Auto) 0.8 Eos # (Auto) 0.1 Baso # (Auto) 0.1 Absolute Nucleated RBC 0.00 Nucleated RBC % 0.0 Sodium 136 Potassium 3.8 Chloride 105 Carbon Dioxide 24 Anion Gap 7.0 BUN 16 Creatinine 0.9 Estimated GFR (MDRD) 78 L Glucose 104 Calcium 9.9 Total Bilirubin 0.4 AST 20 ALT 19 Alkaline Phosphatase 37 L Total Protein 7.9 Albumin 4.6 Globulin 3.3 Albumin/Globulin Ratio 1.4 Lipase 15 Urine Color Urine Clarity Urine pH Ur Specific [place] Urine Protein Urine Glucose (UA) Urine Ketones Urine Occult Blood Urine Nitrite Urine Bilirubin Urine Urobilinogen Ur Leukocyte Esterase Ur Microscopic Review Urine Culture Comments Urine HCG, Qual NEGATIVE 08/29/23 03:50 WBC RBC Hgb Hct MCV MCH MCHC RDW Plt Count MPV Neut # (Auto) Lymph # (Auto) [place] # (Auto) Eos # (Auto) Baso # (Auto) Absolute Nucleated RBC Nucleated RBC % Sodium Potassium Chloride Carbon Dioxide Anion Gap BUN Creatinine Estimated GFR (MDRD) Glucose Calcium Total Bilirubin AST ALT Alkaline Phosphatase Total Protein Albumin Globulin Albumin/Globulin Ratio Lipase Urine Color YELLOW Urine Clarity CLEAR Urine pH 6.5 Ur Specific [place] <=1.005 Urine Protein NEGATIVE Urine Glucose (UA) NEGATIVE Urine Ketones NEGATIVE Urine Occult Blood TRACE-INTA Urine Nitrite NEGATIVE Urine Bilirubin NEGATIVE Urine Urobilinogen 0.2 (NORMAL) Ur Leukocyte Esterase NEGATIVE Ur Microscopic Review NOT INDICATED Urine Culture Comments NOT INDICATED Urine HCG, Qual - Rads (name of study) CT A/P with IV contrast Relevant Findings:: Prelim report reviewed, See rad report PD Medical Decision Making - ED course Complexity details: reviewed results, re-evaluated patient, considered differential, d/w patient ED course: Urine HCG negative. Mild leukocytosis (wbc 13.3). No remarkable findings on ER abdominal panel nor on UA. Declines pain medication but says she feels increasingly anxious; she is given 1mg IV lorazepam for this. CT A/P demonstrates 3.3 cm right ovarian cyst without evidence of complication such as rupture. No other abnormalities on this study. On reevaluation after tests resulted, she is in NAD and reports feeling better. Results d/w patient, return precautions reviewed. Departure - Departure Disposition: 01 Home, Self Care Clinical Impression: Ovarian cyst Condition: Good Instructions: ED Cyst Ovarian Comments: The CT scan shows a small, right-sided ovarian cyst. This is likely the cause of your abdominal/pelvic pain. Fortunately, there is no evidence of any complication such as ruptured ovarian cyst. Follow up with your primary care provider in 2-3 days if the pain has not resolved. Discharge Date/Time: 08/29/23 06:26
[2023-08-29 04:02] LABS: BASOPHILS # (AUTO) 0.1 10^3/uL (0.0-0.1); BASOPHILS % (AUTO) 0.5 %; EOSINOPHILS # (AUTO) 0.1 10^3/uL (0.0-0.7); EOSINOPHILS % (AUTO) 0.8 %; HCT - HEMATOCRIT 41.4 % (37.0-47.0); HGB - HEMOGLOBIN 13.5 g/dL (12.0-16.0); LYMPHOCYTES # (AUTO) 3.8 10^3/uL (1.5-3.5); LYMPHOCYTES % (AUTO) 28.9 %; MEAN CORPUSCULAR HEMOGLOBIN 29.7 pg (27.0-31.0); MEAN CORPUSCULAR HGB CONC 32.6 g/dL (32.0-36.0); MEAN CORPUSCULAR VOLUME 91.2 fL (81.0-99.0); MEAN PLATELET VOLUME 10.7 fL (7.9-10.8); MONOCYTES # (AUTO) 0.8 10^3/uL (0.0-1.0); MONOCYTES % (AUTO) 6.3 %; NEUTROPHILS # (AUTO) 8.4 10^3/uL (1.5-6.6); NEUTROPHILS % (AUTO) 63.3 %; PLT - PLATELET COUNT 240 10^3/uL (130-450); RED BLOOD COUNT 4.54 10^6/uL (4.20-5.40); RED CELL DISTRIBUTION WIDTH 13.1 % (12.0-15.0); WHITE BLOOD COUNT 13.3 x10^3/uL (4.8-10.8)
[2023-08-29 04:08] LABS: BILIRUBIN,URINE NEGATIVE (NEGATIVE); GLUCOSE, URINE (UA) NEGATIVE (NEGATIVE); KETONES,URINE (UA) NEGATIVE (NEGATIVE); LEUKOCYTE ESTERASE, URINE NEGATIVE (NEGATIVE); NITRITE,URINE NEGATIVE (NEGATIVE); OCCULT BLOOD,URINE TRACE-INTA (NEGATIVE); PH,URINE 6.5 PH (5.0-7.5); PROTEIN,URINE NEGATIVE (NEGATIVE); UROBILINOGEN,URINE 0.2 (NORMAL) E.U./dL (NORMAL)
[2023-08-29 04:18] LABS: CLARITY,URINE CLEAR (CLEAR); HCG UR QUAL NEGATIVE
[2023-08-29 04:21] LABS: ALBUMIN 4.6 g/dL (3.2-5.5); ALBUMIN/GLOBULIN RATIO 1.4 (1.0-2.2); BILIRUBIN,TOTAL 0.4 mg/dL (0.2-1.0); CALCIUM 9.9 mg/dL (8.5-10.3); CREATININE 0.9 mg/dL (0.6-1.3); POTASSIUM 3.8 mmol/L (3.5-4.5); TOTAL PROTEIN 7.9 g/dL (6.4-8.9)
[2023-08-29] MEDS ORDERED: iohexoL-300 100 ML VIAL ONE (04:24)
[2023-08-29] MEDS: LORazepam 2 MG/ML VIAL IVP STA (04:32)
[2023-08-29] MEDS: iohexoL-300 100 ML VIAL IVP ONE (05:15)
[2023-08-29 06:08] VITALS: BP 96/59; O2SAT 98
--- NOTE | 2023-08-29 09:39 | CT Report ---
PROCEDURE: Abdomen/Pelvis W INDICATIONS: abd. pain TECHNIQUE: Helical axial CT of the abdomen and pelvis was obtained after intravenous contrast adminis tration and reformatted in multiple planes. Radiation dose reduction was achieved using automated exp osure control or adjustment of mA and/or kV according to patient size. COMPARISON: None FINDINGS: Lower thorax: The lung bases are clear. Heart size normal. No hiatal hernia. Liver: Normal in size and attenuation. No contour deformity present. Biliary system: Cholecystectomy Pancreas: Unremarkable without mass or inflammation evident. Spleen: Normal in size and density. Adrenals: Normal morphology and density. Reproductive system: 3.3 cm right adnexal cyst Urinary system: Normal renal size and attenuation. No renal calculi, hydronephrosis, or solid mass p resent. Urinary bladder unremarkable. Gastrointestinal system: The bowel appears unremarkable with no evidence of bowel obstruction or inf lammation. The stomach appears unremarkable. Appendix: No findings to suggest acute appendicitis. Peritoneal spaces: No mesenteric or retroperitoneal adenopathy. No free air. No free fluid. Vasculature: The IVC, aorta and iliac vasculature are unremarkable. Abdominal wall: Abdominal wall is intact without evidence of ventral or inguinal hernias. Musculoskeletal: Normal bone mineralization. No acute fractures. IMPRESSION: Right adnexal cyst can be correlated with ultrasound if clinically indicated. Note: This final report is concordant with the preliminary after-hours interpretation provided by [facility], [facility] Reviewed by: Pastor Ramos MD on 08/29/2023 8:38 AM WILLI Approved by: Pastor Ramos MD on 08/29/2023 8:38 AM [place] Station ID: [id number]
== END 2023-08-29 06:26 | disposition home or self-care (01) ==
LOC: ED 03:14
DX: N83.291 Other ovarian cyst, right side (principal)
CPT/HCPCS: 36415; 74177; 80053; 81003; 81025; 83690; 85025; 96374; 99284; J2060; Q9967; 81001; 87086

== ENCOUNTER 2023-09-28 10:17 | Outpatient (CLI) | payer OTHER | END 2023-09-28 10:18 | disposition home or self-care (01) | LOC: LAB.N 10:17 | PROVIDERS: ATTEND Nurse Practitioner Obstetrics & Gynecology | DX: Z31.69 Encounter for other general counseling and advice on procreation (principal) | CPT/HCPCS: 36415; 84144 ==

== ENCOUNTER 2023-10-22 12:22 | Outpatient (CLI) | payer OTHER | END 2023-10-22 12:23 | disposition home or self-care (01) | LOC: LAB.N 12:22 | PROVIDERS: ATTEND Nurse Practitioner Obstetrics & Gynecology | DX: Z31.69 Encounter for other general counseling and advice on procreation (principal) | CPT/HCPCS: 36415; 84144 ==

== ENCOUNTER 2023-12-22 10:34 | Emergency (ER) | payer OTHER ==
[2023-12-22 11:03] VITALS: O2SAT 100
--- NOTE | 2023-12-22 12:13 | ED Physician Documentation ---
History of Present Illness - Stated complaint Stated Complaint: DEHYDRATED, WEAKNESS - Chief complaint Chief Complaint: General - History obtained from History obtained from: Patient - History of Present Illness Timing: Prior to arrival - Additonal information Additional information: Patient is a 23-year-old female G3, P2 presenting to the emergency department w ith persistent nausea and feelings of dehydrationbeen unable to eat or drink recently due to nausea during her . Patient is approximately 7 weeks along. Last normal menstrual period was October 29. She notes no abdominal cramping or vaginal bleeding. She notes no persistent emesis but has persistent nausea that makes her have decreased appetite and increased fatigue. She has not followed up with her [facility] at this point but does have scheduled appointment on December 28. She has had at home test that were positive but no ultrasound with confirmed IUP performed at this time. She denies any fevers chills no urinary symptoms no diarrhea. She is taking a multivitamin in the morning but no other medications. She did require IV infusions with her second child. PD PAST MEDICAL HISTORY - Past Medical History Past Medical History: Yes Cardiovascular: None Respiratory: None Neuro: None Endocrine/Autoimmune: None GI: GERD DOCUMENT PREPARER MICROFILMING: Ovarian cysts : None HEENT: Chronic vision loss Psych: Anxiety, Panic attacks, Post traumatic stress disorder Musculoskeletal: None Derm: None - Past Surgical History Past Surgical History: Yes General: Cholecystectomy /DOCUMENT PREPARER MICROFILMING: section HEENT: Tonsil/Adenoidectomy - Present Medications Home Medications: Ambulatory Orders Medication Instructions Recorded Confirmed Ondansetron Odt [Zofran] 4 mg TL Q6H PRN #10 tablet 12/22/23 Pnv No.95/Ferrous Fum/Folic AC 1 each PO DAILY 12/22/23 12/22/23 [ Tablet] - Allergies Allergies/Adverse Reactions: Allergies Allergy/AdvReac Type Severity Reaction Status Date / Time No Known Drug Allergies Allergy Verified 12/22/23 10:48 - Social History Does the pt smoke?: No Smoking Status: Never smoker Does the pt drink ETOH?: No Does the pt have substance abuse?: No - Immunizations Immunizations are current?: Yes - POLST Patient has POLST: No PD ED PE NORMAL - Vitals Vital signs reviewed: Yes - General General: Alert and oriented X 3 - HEENT HEENT: Atraumatic, PERRL, EOMI - Neck Neck: Supple, no meningeal sign - Cardiac Cardiac: RRR, No murmur, No gallop, No rub - Respiratory Respiratory: No respiratory distress, Clear bilaterally - Abdomen Abdomen: Normal bowel sounds, Non tender, Non distended, Other (No CVA tenderness) - Female Female : Deferred - Rectal Rectal: Deferred - Back Back: No CVA TTP - Derm Derm: Normal color, Warm and dry, No rash - Extremities Extremities: No deformity, No edema - Neuro Neuro: Alert and oriented X 3 Results - Vitals Vitals: Vital Signs - 24 hr 12/22/23 12/22/23 12/22/23 10:49 12:02 15:31 Temperature 37 C 36.6 C Heart Rate 75 84 Respiratory 16 16 Rate Blood Pressure 93/68 114/67 108/67 O2 Saturation 100 100 100 Oxygen O2 Source Room air - Labs Labs: Laboratory Tests 12/22/23 12/22/23 12/22/23 12:20 12:26 12:26 WBC 12.4 H RBC 4.43 Hgb 13.3 Hct 41.0 MCV 92.6 MCH 30.0 MCHC 32.4 RDW 12.9 Plt Count 246 MPV 10.4 Neut # (Auto) 8.5 H Lymph # (Auto) 3.2 [place] # (Auto) 0.6 Eos # (Auto) 0.1 Baso # (Auto) 0.1 Absolute Nucleated RBC 0.00 Nucleated RBC % 0.0 Sodium 135 Potassium 4.0 Chloride 104 Carbon Dioxide 25 Anion Gap 6.0 BUN 12 Creatinine 0.7 Estimated GFR (MDRD) 104 Glucose 79 Calcium 9.9 Magnesium 1.8 Total Bilirubin 0.6 AST 11 ALT 12 Alkaline Phosphatase 30 L Total Protein 7.5 Albumin 4.6 Globulin 2.9 Albumin/Globulin Ratio 1.6 Lipase 11 Beta HCG, Quant Urine Color YELLOW Urine Clarity CLEAR Urine pH 7.0 Ur Specific [place] 1.025 Urine Protein NEGATIVE Urine Glucose (UA) NEGATIVE Urine Ketones NEGATIVE Urine Occult Blood NEGATIVE Urine Nitrite NEGATIVE Urine Bilirubin NEGATIVE Urine Urobilinogen 0.2 (NORMAL) Ur Leukocyte Esterase NEGATIVE Ur Microscopic Review NOT INDICATED Urine Culture Comments NOT INDICATED 12/22/23 12:26 WBC RBC Hgb Hct MCV MCH MCHC RDW Plt Count MPV Neut # (Auto) Lymph # (Auto) [place] # (Auto) Eos # (Auto) Baso # (Auto) Absolute Nucleated RBC Nucleated RBC % Sodium Potassium Chloride Carbon Dioxide Anion Gap BUN Creatinine Estimated GFR (MDRD) Glucose Calcium Magnesium Total Bilirubin AST ALT Alkaline Phosphatase Total Protein Albumin Globulin Albumin/Globulin Ratio Lipase Beta HCG, Quant 18556.6 Urine Color Urine Clarity Urine pH Ur Specific [place] Urine Protein Urine Glucose (UA) Urine Ketones Urine Occult Blood Urine Nitrite Urine Bilirubin Urine Urobilinogen Ur Leukocyte Esterase Ur Microscopic Review Urine Culture Comments PD Medical Decision Making - ED course Complexity details: reviewed old records ED course: Patient is a 23-year-old female presenting to the emergency department with symptoms of generalized weakness nausea symptoms have been going on for the past few weeks as she has been approximately 7 weeks and has developed persistent nausea but no emesis during this . Patient is G3, P2. She denies any associated abdominal cramping or vaginal bleeding or associated symptoms she has not followed up with [facility] at this time but is scheduled on December 28. Labs here in the emergency department show no significant anemia no signs of UTI urine analysis appears clear. CMP unremarkable no significant LELAND or electrolyte abnormality despite decreased appetite. Beta hCG quant is appropriate given patient's suspected gestational age at 7 weeks. Patient was given fluids and Zofran she is tolerating p.o. well here in the emergency department feeling significantly better. Bedside ultrasound performed unable to obtain bedside heart tones. Dr. Painter also evaluated patient and did not obtaine FHTs. Will order formal ultrasound. Ultrasound showed intrauterine heart rate of 127 at 6 weeks and 6 days. Discussed with patient reassuring workup and reassuring labs and given she is tolerating p.o. well here in the emergency department she is safe for discharge home. Instructed patient to follow-up with [facility] as scheduled on 28 December and to return with any vaginal bleeding, cramping ,persistent nausea vomiting, urinary symptoms fevers or any other new or worsening symptoms. Departure - Departure Disposition: 01 Home, Self Care Clinical Impression: First trimester , Nausea Condition: Good Follow-Up: Sherrie Ford ARNP [Primary Care Provider] - Comments: Your workup here in the emergency department was reassuring you had an ultrasound that shows intrauterine approximately 6 weeks and 6 days. Your labs were reassuring as well and I sent antinausea medications to your pharmacy. You should keep your appointment with [facility] on the and return if you develop any abdominal cramping vaginal bleeding fevers or persistent nausea vomiting despite antinausea medications. Drink lots of fluids when you return home and return with any other new or worsening symptoms. Forms: PCP List
[2023-12-22 12:33] LABS: BASOPHILS # (AUTO) 0.1 10^3/uL (0.0-0.1); BASOPHILS % (AUTO) 0.4 %; EOSINOPHILS # (AUTO) 0.1 10^3/uL (0.0-0.7); EOSINOPHILS % (AUTO) 0.6 %; HGB - HEMOGLOBIN 13.3 g/dL (12.0-16.0); LYMPHOCYTES # (AUTO) 3.2 10^3/uL (1.5-3.5); MEAN CORPUSCULAR HGB CONC 32.4 g/dL (32.0-36.0); MEAN CORPUSCULAR VOLUME 92.6 fL (81.0-99.0); MEAN PLATELET VOLUME 10.4 fL (7.9-10.8); MONOCYTES # (AUTO) 0.6 10^3/uL (0.0-1.0); MONOCYTES % (AUTO) 4.7 %; NEUTROPHILS # (AUTO) 8.5 10^3/uL (1.5-6.6); NEUTROPHILS % (AUTO) 68.1 %; PLT - PLATELET COUNT 246 10^3/uL (130-450); RED BLOOD COUNT 4.43 10^6/uL (4.20-5.40); RED CELL DISTRIBUTION WIDTH 12.9 % (12.0-15.0); WHITE BLOOD COUNT 12.4 x10^3/uL (4.8-10.8)
[2023-12-22] MEDS: SODIUM CHLORIDE 0.9% 1,000 ML IV STA (12:39)
[2023-12-22 12:50] LABS: ALBUMIN 4.6 g/dL (3.2-5.5); ALBUMIN/GLOBULIN RATIO 1.6 (1.0-2.2); BILIRUBIN,TOTAL 0.6 mg/dL (0.2-1.0); CALCIUM 9.9 mg/dL (8.5-10.3); CREATININE 0.7 mg/dL (0.6-1.3); MAGNESIUM 1.8 mg/dL (1.7-2.3); TOTAL PROTEIN 7.5 g/dL (6.4-8.9)
[2023-12-22] MEDS: ONDANSETRON 4 MG/2 ML VIAL IVP STA (13:03)
[2023-12-22 13:13] LABS: BILIRUBIN,URINE NEGATIVE (NEGATIVE); GLUCOSE, URINE (UA) NEGATIVE (NEGATIVE); KETONES,URINE (UA) NEGATIVE (NEGATIVE); LEUKOCYTE ESTERASE, URINE NEGATIVE (NEGATIVE); NITRITE,URINE NEGATIVE (NEGATIVE); OCCULT BLOOD,URINE NEGATIVE (NEGATIVE); PROTEIN,URINE NEGATIVE (NEGATIVE); UROBILINOGEN,URINE 0.2 (NORMAL) E.U./dL (NORMAL)
[2023-12-22 13:14] LABS: CLARITY,URINE CLEAR (CLEAR)
--- NOTE | 2023-12-22 15:57 | Ultrasound Report ---
PROCEDURE: OB 1st Trimester w/TV INDICATIONS: nausea, abdominal cramping OUTSIDE/PRIOR DATING DATA: Last menstrual period (LMP): 10/30/2023. LMP-based estimated date of delivery (JUAN): 08/05/2024. First dating scan (date and location): 12/22/2023. Estimated date of delivery (JUAN) from first dating scan: 08/10/2024. TECHNIQUE: Real-time scanning was performed of the fetus and maternal pelvic organs, with image documentation. Endovaginal scanning was also performed to better visualize the fetus and maternal ovaries. COMPARISON: None. FINDINGS: Intrauterine gestational sac present. Embryo: Elida-rump length measures 0.87 cm, consistent with 6 weeks and 6 days. Heart rate: 127 bpm. Other: No perigestational fluid collection. Yolk sac is present. Measurement variability in dating: +/- 4 weeks by LMP, +/- 7 days by mean sac diameter (use before 6 weeks gestation if crown-rump length not able to be measured), +/- 5 days by crown-rump length (6-12 weeks gestation). Maternal organs: Ovaries appear within normal limits. Resolving left ovarian corpus pseudocyst measu ring 1.1 cm. Uterine fibroid measuring 2.9 cm. IMPRESSION: Single live intrauterine consistent with 6 weeks and 6 days. Reviewed by: Rashi Tejeda MD on 12/22/2023 3:56 PM PDT Approved by: Rashi Tejeda MD on 12/22/2023 3:56 PM PDT Station ID: [id number]
[2023-12-22 16:04] VITALS: BP 118/60
== END 2023-12-22 16:03 | disposition home or self-care (01) ==
LOC: ED 10:34
DX: O99.891 Other specified diseases and conditions complicating pregnancy (principal); R11.0 Nausea; Z3A.01 Less than 8 weeks gestation of pregnancy
CPT/HCPCS: 36415; 80053; 81001; 81003; 83690; 83735; 84702; 85025; 87086; 96374; 99284

== ENCOUNTER 2024-01-06 16:15 | Emergency (ER) | payer OTHER ==
[2024-01-06 17:13] LABS: BASOPHILS % (AUTO) 0.2 %; EOSINOPHILS # (AUTO) 0.1 10^3/uL (0.0-0.7); EOSINOPHILS % (AUTO) 0.4 %; HCT - HEMATOCRIT 37.3 % (37.0-47.0); HGB - HEMOGLOBIN 12.5 g/dL (12.0-16.0); LYMPHOCYTES # (AUTO) 2.5 10^3/uL (1.5-3.5); LYMPHOCYTES % (AUTO) 18.4 %; MEAN CORPUSCULAR HGB CONC 33.5 g/dL (32.0-36.0); MEAN CORPUSCULAR VOLUME 92.6 fL (81.0-99.0); MEAN PLATELET VOLUME 9.8 fL (7.9-10.8); MONOCYTES # (AUTO) 0.6 10^3/uL (0.0-1.0); MONOCYTES % (AUTO) 4.4 %; NEUTROPHILS # (AUTO) 10.2 10^3/uL (1.5-6.6); NEUTROPHILS % (AUTO) 76.4 %; PLT - PLATELET COUNT 255 10^3/uL (130-450); RED BLOOD COUNT 4.03 10^6/uL (4.20-5.40); WHITE BLOOD COUNT 13.3 x10^3/uL (4.8-10.8)
--- NOTE | 2024-01-06 17:14 | ED Physician Documentation ---
PD HPI NVD - Stated complaint Stated Complaint: NAUSEA - Chief complaint Chief Complaint: Abd Pain - History obtained from History obtained from: Patient - History of Present Illness Timing - onset: How many weeks ago (has had N/V for several weeks of being . No diarrhea. No hematemesis. Feeling weaker and lightheaded the past 1-2 days as meds have not been working as well.) Associated symptoms: Loss of appetite. No: Abdominal pain, Hematemesis Contributing factors: Other ( about 7 weeks.). No: Sick contact Recently seen: Clinic (last week with Rx for Vitamin B6 and unasom, had Rx for Zofran that is not effective the past few days.), Emergency Dept (2 weeks ago for similar.) PD PAST MEDICAL HISTORY - Past Medical History Past Medical History: Yes Cardiovascular: None Respiratory: None Neuro: None Endocrine/Autoimmune: None GI: GERD RECEPTIONIST DOCTOR'S OFFICE: Ovarian cysts : None HEENT: Chronic vision loss Psych: Anxiety, Panic attacks, Post traumatic stress disorder Musculoskeletal: None Derm: None - Past Surgical History Past Surgical History: Yes General: Cholecystectomy /RECEPTIONIST DOCTOR'S OFFICE: section HEENT: Tonsil/Adenoidectomy - Present Medications Home Medications: Ambulatory Orders Medication Instructions Recorded Confirmed Pnv No.95/Ferrous Fum/Folic AC 1 each PO DAILY 12/22/23 01/06/24 [ Tablet] Famotidine [Pepcid] 20 mg PO DAILY #15 tablet 01/06/24 Nitrofurantoin [Macrobid] 100 mg PO BID 01/06/24 01/06/24 Prochlorperazine Supp [Compazine 25 mg ID BID PRN #6 supp 01/06/24 Supp] Prochlorperazine [Compazine] 5 mg PO Q6H PRN #15 tablet 01/06/24 - Allergies Allergies/Adverse Reactions: Allergies Allergy/AdvReac Type Severity Reaction Status Date / Time No Known Drug Allergies Allergy Verified 01/06/24 16:18 - Social History Does the pt smoke?: No Smoking Status: Never smoker Does the pt drink ETOH?: No Does the pt have substance abuse?: No - Immunizations Immunizations are current?: Yes - POLST Patient has POLST: No PD ED PE NORMAL - Vitals Vital signs reviewed: Yes - General General: Alert and oriented X 3, No acute distress, Well developed/nourished - HEENT HEENT: Pharynx benign. No: Moist mucous membranes - Neck Neck: Supple, no meningeal sign, No adenopathy - Cardiac Cardiac: RRR, No murmur - Respiratory Respiratory: Clear bilaterally - Abdomen Abdomen: Soft, Non tender - Female Female : Deferred Results - Vitals Vitals: Oxygen O2 Source Room air - Labs Labs: Laboratory Tests 01/06/24 01/06/24 01/06/24 17:08 17:08 17:14 WBC 13.3 H RBC 4.03 L Hgb 12.5 Hct 37.3 MCV 92.6 MCH 31.0 MCHC 33.5 RDW 13.0 Plt Count 255 MPV 9.8 Neut # (Auto) 10.2 H Lymph # (Auto) 2.5 [place] # (Auto) 0.6 Eos # (Auto) 0.1 Baso # (Auto) 0.0 Absolute Nucleated RBC 0.00 Nucleated RBC % 0.0 Sodium 135 Potassium 3.8 Chloride 104 Carbon Dioxide 26 Anion Gap 5.0 L BUN 9 Creatinine 0.6 Estimated GFR (MDRD) 124 Glucose 94 Calcium 9.2 Magnesium 1.7 Total Bilirubin 0.5 AST 13 ALT 18 Alkaline Phosphatase 27 L Total Protein 6.8 Albumin 4.0 Globulin 2.8 Albumin/Globulin Ratio 1.4 Lipase < 10 L Urine Color YELLOW Urine Clarity CLEAR Urine pH 7.0 Ur Specific [place] 1.020 Urine Protein NEGATIVE Urine Glucose (UA) NEGATIVE Urine Ketones NEGATIVE Urine Occult Blood NEGATIVE Urine Nitrite NEGATIVE Urine Bilirubin NEGATIVE Urine Urobilinogen 1 (NORMAL) Ur Leukocyte Esterase NEGATIVE Ur Microscopic Review NOT INDICATED Urine Culture Comments NOT INDICATED PD Medical Decision Making - ED course Complexity details: reviewed results, re-evaluated patient (feeling better after IV fluids and meds. Given juice and water here. ), considered differential (N/V with pregancy. Seen 2 weeks ago with labs and had US showing single IUD and no other abd process. hared decision that we did not need repeat imaging but rather tow wrok on hydration and meds for symptoms. ), d/w patient Departure - Departure Disposition: 01 Home, Self Care Clinical Impression: Nausea and vomiting, , Volume depletion Condition: Stable Follow-Up: Glenis Boateng CNM, [facility] [Primary Care Provider] - Prescriptions: Prochlorperazine [Compazine] 5 mg PO Q6H PRN #15 tablet PRN Reason: Nausea / Vomiting Prochlorperazine Supp [Compazine Supp] 25 mg ID BID PRN #6 supp PRN Reason: Nausea / Vomiting Famotidine [Pepcid] 20 mg PO DAILY #15 tablet Comments: Continue with the current doxylamine and vitamin B6 suggested by your provider. You can continue the Zofran/ondansetron if needed for nausea but since it was not being very effective, I also wrote prescriptions for Compazine both tablets and suppositories to use instead. Follow-up with your [facility] provider. I sent your prescriptions to your preferred pharmacy. Since you have been having a lot of nausea and vomiting, that can cause irritation of the stomach which perpetuates the nausea as well. I would suggest some famotidine acid reducing medicine daily for the next couple of weeks. You can use antacids such as Maalox or Mylanta during . Forms: PCP List Discharge Date/Time: 01/06/24 19:41
[2024-01-06 17:32] LABS: ALBUMIN/GLOBULIN RATIO 1.4 (1.0-2.2); ALKALINE PHOSPHATASE 27 IU/L (42-121); ALT ALANINE AMINOTRANSFERASE 18 IU/L (10-60); AST ASPARTATE AMINOTRANSFERASE 13 IU/L (10-42); BILIRUBIN,TOTAL 0.5 mg/dL (0.2-1.0); BUN - BLOOD UREA NITROGEN 9 mg/dL (6-20); CALCIUM 9.2 mg/dL (8.5-10.3); CARBON DIOXIDE - CO2 26 mmol/L (21-32); CHLORIDE 104 mmol/L (101-111); CREATININE 0.6 mg/dL (0.6-1.3); GFR - MDRD 124 (>89); GLUCOSE 94 mg/dL (74-104); MAGNESIUM 1.7 mg/dL (1.7-2.3); POTASSIUM 3.8 mmol/L (3.5-4.5); SODIUM 135 mmol/L (135-145); TOTAL PROTEIN 6.8 g/dL (6.4-8.9)
[2024-01-06 17:39] LABS: BILIRUBIN,URINE NEGATIVE (NEGATIVE); GLUCOSE, URINE (UA) NEGATIVE (NEGATIVE); KETONES,URINE (UA) NEGATIVE (NEGATIVE); LEUKOCYTE ESTERASE, URINE NEGATIVE (NEGATIVE); NITRITE,URINE NEGATIVE (NEGATIVE); OCCULT BLOOD,URINE NEGATIVE (NEGATIVE); PROTEIN,URINE NEGATIVE (NEGATIVE); UROBILINOGEN,URINE 1 (NORMAL) E.U./dL (NORMAL)
[2024-01-06] MEDS: SODIUM CHLORIDE 0.9% 2,000 ML IV STA (17:40)
[2024-01-06] MEDS: FAMOTIDINE 20 MG/2 ML VIAL IVP STA (17:40)
[2024-01-06] MEDS: DEXAMETHASONE 10 MG/ML VIAL IVP STA (17:40)
[2024-01-06 17:41] LABS: CLARITY,URINE CLEAR (CLEAR)
[2024-01-06] MEDS: PROCHLORPERAZINE 10 MG/2 ML VIAL IVP STA (17:41)
[2024-01-06 17:43] LABS: LIPASE < 10 U/L (11-82)
[2024-01-06 19:22] VITALS: O2SAT 100
[2024-01-06 19:41] VITALS: BP 125/66
== END 2024-01-06 19:41 | disposition home or self-care (01) ==
LOC: ED 16:15
DX: O99.281 Endocrine, nutritional and metabolic diseases complicating pregnancy, first trimester (principal); E86.9 Volume depletion, unspecified; O21.9 Vomiting of pregnancy, unspecified; Z3A.01 Less than 8 weeks gestation of pregnancy
CPT/HCPCS: 36415; 80053; 81001; 81003; 83690; 83735; 85025; 87086; 96374; 96375; 99283

== ENCOUNTER 2024-02-15 17:04 | Outpatient (CLI) | payer OTHER ==
[2024-02-15 18:04] LABS: BILIRUBIN,URINE NEGATIVE (NEGATIVE); GLUCOSE, URINE (UA) NEGATIVE (NEGATIVE); KETONES,URINE (UA) NEGATIVE (NEGATIVE); LEUKOCYTE ESTERASE, URINE NEGATIVE (NEGATIVE); NITRITE,URINE NEGATIVE (NEGATIVE); OCCULT BLOOD,URINE TRACE-LYSE (NEGATIVE); PROTEIN,URINE NEGATIVE (NEGATIVE); UROBILINOGEN,URINE 0.2 (NORMAL) E.U./dL (NORMAL)
[2024-02-15 18:34] LABS: BACTERIA,URINE Rare /HPF (None Seen); CLARITY,URINE CLEAR (CLEAR); RBC,URINE 0-5 /HPF (0-5); SQUAMOUS EPITHELIAL CELL,UR MOD Squamous (<= Few); WBC,URINE 0-3 /HPF (0-5)
== END 2024-02-15 17:05 | disposition home or self-care (01) ==
LOC: LAB.WC 17:04
PROVIDERS: ATTEND Nurse Practitioner Obstetrics & Gynecology
DX: R35.0 Frequency of micturition (principal)
CPT/HCPCS: 81001; 87086

== ENCOUNTER 2024-07-11 05:52 | Inpatient (IN) ==
[2024-07-11 06:25] LABS: BASOPHILS % (AUTO) 0.3 %; EOSINOPHILS # (AUTO) 0.1 10^3/uL (0.0-0.7); EOSINOPHILS % (AUTO) 0.5 %; HCT - HEMATOCRIT 38.8 % (37.0-47.0); HGB - HEMOGLOBIN 12.6 g/dL (12.0-16.0); LYMPHOCYTES # (AUTO) 4.1 10^3/uL (1.5-3.5); LYMPHOCYTES % (AUTO) 25.4 %; MEAN CORPUSCULAR HEMOGLOBIN 30.6 pg (27.0-31.0); MEAN CORPUSCULAR HGB CONC 32.5 g/dL (32.0-36.0); MEAN CORPUSCULAR VOLUME 94.2 fL (81.0-99.0); MEAN PLATELET VOLUME 10.2 fL (7.9-10.8); MONOCYTES # (AUTO) 0.9 10^3/uL (0.0-1.0); MONOCYTES % (AUTO) 5.4 %; NEUTROPHILS # (AUTO) 10.7 10^3/uL (1.5-6.6); PLT - PLATELET COUNT 240 10^3/uL (130-450); RED BLOOD COUNT 4.12 10^6/uL (4.20-5.40); RED CELL DISTRIBUTION WIDTH 13.8 % (12.0-15.0); WHITE BLOOD COUNT 15.9 x10^3/uL (4.8-10.8)
--- NOTE | 2024-07-11 07:30 | HISTORY & PHYSICAL EXAMINATION ---
Admit History : 3 Premature: 2 Smoking Status: Never smoker Other Maternal History Other Maternal History: HPI: Patient is a 24-year-old G3, P0202 at 36 weeks 3 days gestation presenting for repeat low-transverse section secondary to previous classical section. She was observed for contractions last week, but was found not to be in labor, but she did receive a course of corticosteroids. She has good movement. Denies loss of fluid. No ALVARADO/BV or RUQP. No vaginal bleeding. Denies nausea and vomiting. Denies urinary urgency or dysuria. All other symptoms reviewed and were negative except per HPI. Course History of mid transverse section. Breech presentation at 29 weeks 6 days gestation. Aware that she SHOULD NOT LABOR. Should have a late /early term repeat section. History of labor: First delivery at 29 weeks, second delivery at 35 weeks 6 days via repeat section. -Will likely check cervix at each visit Chronic HTN with history of preeclampsia without severe features. LDASA at 16wks GBS bacteriuria LMP: 10/30/2023 JUAN by LMP: 08/05/2024 US: 12/22/2023 @ 6.6wks -JUAN 08/11/2023 Final JUAN: 08/05/24 Pre- Weight: 196 BMI: 34.7 Blood type: A+ Antibody Screen: neg CBC: PLT 282 HCT 36.5 HGB 12.3 RUB: immune VZV: immune HBsAg: NR HepC: NR RPR: NR HIV: NR Flu: declines Covid: x 2, no booster PAP: 10/29/22 normal GC/CT: neg/neg HSV: denies in self and partner Genetic testing: neg FAS:Placenta: anterior w/o previa Cord: 3VC EMERITA: WNL EFW: 399.5, 74.6% 50gm OGCT: 152 3HR GTT: 89 107, 144, 117-pass TDAP: given 05/15/24 mls Breast Pump: given RSV: Antibody screen CBC: PLT/HCT/HGB 11.5/34.4/240 RPR:NR GBS: 06/15/2024 Positive GBS bacteriuria in early Delivery plan: 36-week PP BC: Paragard HPI Current : Vital Signs Temperature 37.2 C 07/11/24 06:03 Pulse Rate 83 07/11/24 06:03 Respiratory Rate 18 07/11/24 06:03 Blood Pressure 120/77 07/11/24 06:03 Meds/Allgy Home Medications Ambulatory Orders Medication Instructions Recorded Confirmed vit no.95-ferrous 1 ea PO DAILY 12/22/23 07/05/24 fumarate 28 mg-folic acid 800 mcg tablet aspirin 81 mg tablet,delayed 81 mg PO QDAY 03/02/24 07/05/24 release (Adult Aspirin Regimen) Allergies Allergies Allergy/AdvReac Type Severity Reaction Status Date / Time No Known Drug Allergies Allergy Verified 07/05/24 12:12 [facility] Medical History Medical History (Updated 07/11/24 @ 07:40 by Jacky Sanabria MD) Leukocytosis History of pre-eclampsia Positive GBS test Glucose intolerance of depression (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) History of labor (05/06/22) Surgical History Surgical History (Updated 07/11/24 @ 07:34 by Jacky Sanabria MD) History of cholecystectomy Status post delivery History of tonsillectomy Family History Family History Grandmother Thyroid disease Grandfather Diabetes Social History Social History (Updated 04/08/24 @ 14:24 by Aleyda Fuller LPN) Smoking Status: Never smoker Second hand tobacco smoke exposure: No Do you dip or chew tobacco?: No Do you vape?: No Relationship: Spouse Do you feel safe in your home environment?: Yes Suffered physical, verbal, emotional, or financial abuse?: No History of Abuse: No Are you sexually active?: Yes POLST Patient has POLST: No Review of Systems Status of ROS: 10 or more systems reviewed and unremarkable except as noted in history and below Physical Abdominal Exam Vital Signs: Temp Pulse Resp BP 37.2 C 83 18 120/77 07/11/24 06:03 07/11/24 06:03 07/11/24 06:03 07/11/24 06:03 Other Notes Labor Progress Note/Additional Text: General: Alert, oriented, no acute distress Head: Normal cephalic atraumatic Eyes: PERRLA, extraocular motions intact. Respiratory: Normal rate of respiration. No accessory muscle use, normal respiratory effort. Cardiovascular: Regular rate and rhythm Abdomen: Gravid, nontender, nondistended Extremities: Normal range of motion Neuro: Oriented x3. Normal movements Psych: Appropriate mood and affect. Normal judgment and insight FHT: 140 BPM baseline, moderate variability, accelerations present, no decelerations. Reactive NST [place]: irregular Plan for Labor Plan For Labor I expect patient to be DC'd or transferred within 96 hours.: Yes Conclusion/Plan Problem List (1) History of classical section: Plan: section was recommended. Risks, benefits and alternatives were discussed including but not limited to infection, bleeding that may require blood products or hysterectomy for life saving measures, injury to surrounding organs including but not limited to bowel, bladder, ureters, tubes and ovaries and/or the baby. Should injury occur it could require longer/additional surgery to repair. The patient stated understanding and desired to proceed. All questions were answered posed by patient. 2 g cefazolin Proceed with planned section Paragard not available today, will place paragard at 6 week visit. (2) Encounter for maternal care for scar from repeat delivery: Plan: Planned (3) 36 weeks gestation of : Plan: Received steroids within the week. Had contractions last week, but did not end up in labor. (4) Excessive weight gain affecting : Plan: EFW 2256 g, 46 percentile on 06/26/2024 (5) GBS (group B streptococcus) UTI complicating : Plan: GBS in urine in 1st trimester Qualifiers: Trimester: third trimester Qualified Code(s): O23.43 - Unspecified infection of urinary tract in , third trimester; B95.1 - Streptococcus, group B, as the cause of diseases classified elsewhere Lab Results 07/11/24 06:16
[2024-07-11] MEDS ORDERED: ceFAZolin (2G) 2 GM in SODIUM CHLORIDE 0.9% MINIBAG 100 ML IV SCH (07:42)
[2024-07-11] MEDS: ACETAMINOPHEN 500 MG TABLET PO ONE (07:43)
[2024-07-11] MEDS: CITRIC ACID/SODIUM CITRATE 15 ML UDC PO ONE (07:44)
[2024-07-11] MEDS: LACTATED RINGERS 1,000 ML IV SCH (07:47)
[2024-07-11] MEDS: ceFAZolin 2 GM VIAL IVP SCH (08:00)
[2024-07-11] MEDS ORDERED: OXYTOCIN/SODIUM CHLORIDE 500 ML IV ONE (08:21)
[2024-07-11] MEDS ORDERED: ONDANSETRON 4 MG/2 ML VIAL ONE (08:21)
[2024-07-11] MEDS ORDERED: PHENYLEPHRINE HCL 0.5 MG/5 ML AMPULE ONE ×2 (08:21→08:57)
[2024-07-11] MEDS ORDERED: ACETAMINOPHEN 1,000 MG/100 ML 1,000 MG/100 ML BAG IV ONE (08:21)
--- NOTE | 2024-07-11 08:21 | ANESTHESIA PROCEDURE NOTE ---
Pre-Anesthesia VS, & Labs Diagnosis Surgical Diagnosis:: hx previous C Section Procedure Procedure: C Section Vitals Vital Signs: Temp Pulse Resp BP 37.2 C 83 18 120/77 07/11/24 06:03 07/11/24 06:03 07/11/24 06:03 07/11/24 06:03 Height (in): 5 ft 3 in Weight (kg): 97 kg Body Mass Index: 37.8 BMI Classification: Obese NPO NPO: >8 hours Is Patient ?: Yes Estimated Due Date:: 07/11/24 Lab Results Current Lab Results: Laboratory Tests 07/11/24 06:16: WBC 15.9 H, RBC 4.12 L, Hgb 12.6, Hct 38.8, MCV 94.2, MCH 30.6, MCHC 32.5, RDW 13.8, Plt Count 240, MPV 10.2, Neut # (Auto) 10.7 H, Lymph # (Auto) 4.1 H, [place] # (Auto) 0.9, Eos # (Auto) 0.1, Baso # (Auto) 0.0, Absolute Nucleated RBC 0.00, Nucleated RBC % 0.0, Blood Type A POSITIVE, Antibody Screen NEGATIVE Lab results reviewed: Yes 07/11/24 06:16 Meds/Allgy Home Medications Ambulatory Orders Medication Instructions Recorded Confirmed vit no.95-ferrous 1 ea PO DAILY 12/22/23 07/05/24 fumarate 28 mg-folic acid 800 mcg tablet aspirin 81 mg tablet,delayed 81 mg PO QDAY 03/02/24 07/05/24 release (Adult Aspirin Regimen) Allergies Allergies Allergy/AdvReac Type Severity Reaction Status Date / Time No Known Drug Allergies Allergy Verified 07/05/24 12:12 [facility] Medical History Medical History Leukocytosis History of pre-eclampsia Positive GBS test Glucose intolerance of depression (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) History of labor (05/06/22) Surgical History Surgical History History of cholecystectomy Status post delivery History of tonsillectomy Family History Family History Grandmother Thyroid disease Grandfather Diabetes Social History Social History Smoking Status: Never smoker Second hand tobacco smoke exposure: No Do you dip or chew tobacco?: No Do you vape?: No Relationship: Spouse Do you feel safe in your home environment?: Yes Suffered physical, verbal, emotional, or financial abuse?: No History of Abuse: No Are you sexually active?: Yes POLST Patient has POLST: No Anesthesia Exam (Expanded) Exam General: Alert and Oriented x3 Dental: WNL Mouth Opening: Greater than 4 Fingerbreadths Neck Mobility: Normal Mallampati classification: III Thyromental Distance: 4-6 cm Respiratory: No respiratory distress Cardiovascular: Regular rate Abdomen: Other () Mental/Cognitive Status: Alert/Oriented X3 and Change from baseline Cognitive Status: Within normal limits Plan Problem List (1) History of classical section: Plan: section was recommended. Risks, benefits and alternatives were discussed including but not limited to infection, bleeding that may require blood products or hysterectomy for life saving measures, injury to surrounding organs including but not limited to bowel, bladder, ureters, tubes and ovaries and/or the baby. Should injury occur it could require longer/additional surgery to repair. The patient stated understanding and desired to proceed. All questions were answered posed by patient. 2 g cefazolin Proceed with planned section Paragard not available today, will place paragard at 6 week visit. (2) Encounter for maternal care for scar from repeat delivery: Plan: Planned (3) 36 weeks gestation of : Plan: Received steroids within the week. Had contractions last week, but did not end up in labor. (4) Excessive weight gain affecting : Plan: EFW 2256 g, 46 percentile on 06/26/2024 (5) GBS (group B streptococcus) UTI complicating : Plan: GBS in urine in 1st trimester Qualifiers: Trimester: third trimester Qualified Code(s): O23.43 - Unspecified infection of urinary tract in , third trimester; B95.1 - Streptococcus, group B, as the cause of diseases classified elsewhere (6) Leukocytosis: (7) History of pre-eclampsia: (8) Positive GBS test: (9) Glucose intolerance of : (10) depression: (11) History of labor: (12) History of cholecystectomy: (13) Status post delivery: (14) History of tonsillectomy: (15) Achilles tendinitis: (16) Obesity: (17) Polycystic ovary syndrome: (18) Anxiety: (19) Fatigue: Plan Anesthesia Type: Spinal and Transverse Abdominis Plane (TAP) Block Regional Block: Per Surgeon's request for Post Op pain control Consent for Procedure(s) Verified and Reviewed: Yes Code Status: Attempt Resuscitation ASA Classification ASA classification: 2-Mild systemic disease Is this case an emergency?: No
[2024-07-11] MEDS ORDERED: KETOROLAC 30 MG/ML VIAL ONE (09:28)
[2024-07-11] MEDS ORDERED: fentaNYL 100 MCG/2 ML VIAL ONE (09:29)
[2024-07-11] MEDS ORDERED: ROPIVACAINE 0.5% PF 20 ML VIAL ONE (09:58)
[2024-07-11] MEDS ORDERED: SODIUM CHLORIDE 0.9% 10 ML VIAL IVP ONE (09:58)
[2024-07-11] MEDS ORDERED: DEXAMETHASONE 4 MG/ML VIAL ONE (09:59)
[2024-07-11] MEDS ORDERED: fentaNYL 100 MCG/2 ML VIAL IVP PRN (10:19)
[2024-07-11] MEDS ORDERED: ATROPINE ABBOJECT 1 MG/10 ML SYRINGE IVP PRN (10:19)
[2024-07-11] MEDS ORDERED: NALOXONE 0.4 MG/ML VIAL IVP PRN (10:19)
[2024-07-11] MEDS ORDERED: METOCLOPRAMIDE 10 MG/2 ML VIAL IVP PRN (10:19)
[2024-07-11] MEDS ORDERED: ONDANSETRON 4 MG/2 ML VIAL IVP PRN (10:19)
[2024-07-11] MEDS ORDERED: MORPHINE 2 MG/ML CARPUJECT IVP PRN (10:19)
[2024-07-11] MEDS ORDERED: HYDROmorphone 0.5 MG/0.5 ML SYRINGE IVP PRN (10:19)
[2024-07-11] MEDS ORDERED: ePHEDrine 50 MG/ML VIAL IVP PRN (10:19)
--- NOTE | 2024-07-11 10:21 | ANESTHESIA POST OP EVALUATION ---
Anesthesia Post Eval Post Anesthesia Eval Vitals: Last Vital Signs Temp 37.2 C 07/11/24 06:03 Pulse 83 07/11/24 06:03 Resp 18 07/11/24 06:03 BP 120/77 07/11/24 06:03 CV Function Including HR & BP: Stable Pain Control: Satisfactory Nausea & Vomiting: Negative Mental Status: Baseline Respiratory Status: Airway Patent Hydration Status: Satisfactory Anesthesia Complications: None
[2024-07-11] MEDS ORDERED: ONDANSETRON ODT 4 MG TABLET TL PRN (10:29)
[2024-07-11] MEDS ORDERED: OXYTOCIN/SODIUM CHLORIDE 500 ML IV PRN (10:29)
--- NOTE | 2024-07-11 10:32 | OPERATIVE REPORT ---
Operative Report General Admit Date: 07/11/24 Procedure Data: Operation Date: 07/11/24 08:30 Proposed Procedures p REPEAT Section(Not Applicable) - Jacky Sanabria MD Actual Procedures p REPEAT Section(Not Applicable) - Jacky Sanabria MD Pre-Op Diagnosis: REPEAT SECTION Anesthesia Type Spinal Case Staff Anesthesia Provider: Carolyn Domingo Anesthesia Provider: Lesli Edward Assisting Provider: Va Villanueva Case Times Into Recovery: 07/11/24 10:14 Procedure Start: 07/11/24 08:49 Procedure End: 07/11/24 09:56 Time out: 07/11/24 08:45 Pre-Op Diagnosis: 36 weeks gestation, previous mid transverse section Post Op Diagnosis: Same, status post repeat Procedure Note Intake, IV Amount (ml): 900 Estimated Blood Loss (ml): 700 Output, Urine Amount (ml): 80 Pathology: None Complications: None Other Other Information/Narrative: section was recommended. Risks, benefits and alternatives were discussed including but not limited to infection, bleeding that may require blood products or hysterectomy for life saving measures, injury to surrounding organs including but not limited to bowel, bladder, ureters, tubes and ovaries and/or the baby. Should injury occur it could require longer/additional surgery to repair. The patient stated understanding and desired to proceed. All questions were answered posed by patient. Prior to being taken to the OR, 2 grams of cefazolin IV was administered. The patient was taken to the operating room where regional anesthesia was found to be adequate. She was then prepared and draped in the usual sterile fashion in the dorsal supine position with a leftward tilt displacing the uterus. Payne was draining to gravity. SCDs were on bilateral lower extremities. Time out was taken. A pfannenstiel skin incision was then made on both sides of the scar which was then elevated and excised. The incision was then carried through to the underlying layer of fascia. There was thick scar tissue and careful dissection was made. The fascia was incised in the midline and the incision extended laterally with the Man scissors. The superior aspect of the facial incision was then grasped with the Rober clamps, elevated and the underlying rectus muscles dissected off sharply, carefully dissecting the scar tissue away from the muscles. Attention was then turned to the inferior aspect of this incision which in a similar fashion was grasped, elevated with the Rober clamps and the rectus muscle dissected off sharply. The rectus muscles were in the midline. The peritoneum was identified, grasped with the pick-ups and entered sharply with the Metzenbaum scissors. The peritoneal incision was then extended superiorly and inferiorly with good visualization of the bladder. The bladder blade was inserted. The vesicouterine peritoneum was identified, grasped with the pick-ups, and entered sharply with Metzenbaum scissors. This incision was then extended laterally and the bladder flap created digitally. The bladder blade was reinserted. The lower uterine segment was identified and was very thin and incised in a transverse fashion with the scalpel. The uterine incision was then extended bluntly laterally. Artificial rupture of membranes demonstrated clear fluid. The bladder blade was removed. The fetus was in a cephalic presentation. The infants head delivered atraumatically. The anterior shoulders were delivered followed by the posterior shoulders then the remainder of the body. The infants mouth and nose were bulb suctioned. The umbilical cord was clamped times two and cut. The was handed to the pediatric team. The placenta was removed with gentle traction. Oxytocin was added to the IV fluid and was allowed to run freely. The uterus was exteriorized and cleared of all clots and debris. The uterine incision was inspected and found to be without any extensions and was repaired with 0 Vicryl in a running, locked fashion. A second imbricating layer was performed. A [id number] stitch was needed to achieve hemostasis in one area. Upon inspection, the repaired hysterotomy was found to be hemostatic. The uterus was firm and returned to the abdomen. The gutters were cleared of all clots and debris. The muscle layer was examined and found to be hemostatic. The fascia was reapproximated with 0 Vicryl in a running fashion. The subc utaneous tissue was closed with 2-0 Vicryl. The skin was closed in a subcuticular fashion with 4-0 Monocryl. The patient tolerated the procedure well. Sponge, lap and needle counts were correct times three. The patient was taken to the recovery room in stable condition. I appreciate the assistance of ZAHRA Landeros during this procedure, and the assistance in retraction, visualization, dissection, and overall assistance during the case were instrumental to the patient's wellbeing. APGARs: 9/9 weight: Pending
[2024-07-11] MEDS ORDERED: LACTATED RINGERS 1,000 ML IV SCH ×2 (11:00)
[2024-07-11] MEDS ORDERED: KETOROLAC 30 MG/ML VIAL IVP SCH (12:00)
[2024-07-11] MEDS ORDERED: ACETAMINOPHEN 500 MG TABLET PO SCH (12:00)
[2024-07-11] MEDS: KETOROLAC 30 MG/ML VIAL IVP SCH (18:44)
[2024-07-11] MEDS: ACETAMINOPHEN 500 MG TABLET PO SCH (20:14)
[2024-07-11] MEDS: SIMETHICONE CHEW 80 MG TABLET PO PRN (21:35)
[2024-07-11] MEDS: oxyCODONE 5 MG TABLET PO PRN (21:35)
[2024-07-12 05:22] LABS: BASOPHILS % (AUTO) 0.2 %; LYMPHOCYTES % (AUTO) 12.6 %; MEAN CORPUSCULAR HGB CONC 32.4 g/dL (32.0-36.0); MEAN CORPUSCULAR VOLUME 92.6 fL (81.0-99.0); MEAN PLATELET VOLUME 10.1 fL (7.9-10.8); MONOCYTES % (AUTO) 5.8 %; NEUTROPHILS % (AUTO) 79.9 %; PLT - PLATELET COUNT 251 10^3/uL (130-450); RED BLOOD COUNT 3.67 10^6/uL (4.20-5.40); RED CELL DISTRIBUTION WIDTH 13.6 % (12.0-15.0); WHITE BLOOD COUNT 25.2 x10^3/uL (4.8-10.8)
[2024-07-12 05:51] LABS: ABNORMAL LYMPHS % (MANUAL) 0 %
[2024-07-12 05:52] LABS: BAND NEUTROPHILS % (MANUAL) 3 %; LYMPHOCYTES % (MANUAL) 8 %; MONOCYTES # (MANUAL) 2.3 10^3/uL (0.0-1.0); NEUTROPHILS # (MANUAL) 20.9 10^3/uL (1.5-6.6); PLATELET MORPHOLOGY NORMAL APPEARANCE (NORMAL); RBC MORPHOLOGY (MULTIPLE) NORMAL APPEARANCE (NORMAL)
[2024-07-12 05:53] LABS: DIFFERENTIAL COMMENT MANUAL DIFFERENTIAL; PLATELET ESTIMATE, MANUAL NORMAL (130-450,000) (NORMAL)
[2024-07-12] MEDS ORDERED: KETOROLAC 30 MG/ML VIAL ONE (06:42)
[2024-07-12] MEDS: DOCUSATE SODIUM 100 MG CAPSULE PO SCH (08:34)
--- NOTE | 2024-07-12 09:09 | PROVIDER PROGRESS NOTE ---
Subjective Subjective Subjective: Subjective Patient reports she is doing well. Lochia appropriate. Denies heavy bleeding. Ambulating. Pelvic and abdominal pain well-controlled. Tolerating oral intake. Diet: Regular. Voiding without difficulty. Passing flatus. Denies BM. Patient is bonding with baby in room Breast feeding going well. Denies feeling lightheaded, dizzy or excessively fatigued. Control: ParaGard Objective General: Alert, oriented, no apparent distress. Cardiovascular: Regular rate. Regular rhythm. Lungs: No increased work of breathing. Abdomen: Uterus firm. Below umbilicus. No guarding or rebound. Extremities: No pain on palpation. No cords palpated. Distal pulses intact. Incision: Clean, dry, and intact. Bandage removed today. Current Medications Current Medications Current Medications: Current Medications Generic Name Dose Route Start Last Admin Trade Name Freq PRN Reason Stop Dose Admin Acetaminophen 1,000 mg 07/11/24 20:00 07/12/24 08:33 Acetaminophen 500 Mg Tablet PO 1,000 mg Q6HR SAUL Administration Docusate Sodium 100 mg 07/12/24 09:00 07/12/24 08:34 Docusate Sodium 100 Mg Capsule PO 100 mg DAILY SAUL Administration Lactated Ringer's 1,000 mls @ 100 mls/hr 07/11/24 11:00 Lr IV .Q10H SAUL Ibuprofen 600 mg 07/12/24 12:00 Ibuprofen 600 Mg Tablet PO Q6HR SAUL Ondansetron HCl 4 mg 07/11/24 10:29 Ondansetron Odt 4 Mg Tablet TL Q4HR PRN Nausea / Vomiting Oxycodone HCl 5 mg 07/11/24 10:29 07/11/24 21:35 Oxycodone 5 Mg Tablet PO 5 mg Q4HR PRN Administration Moderate Pain (Level 4-6) Simethicone 80 mg 07/11/24 10:29 07/11/24 21:35 Simethicone Chew 80 Mg Tablet PO 80 mg TID PRN Administration Gas Objective Vital Signs/Intake & Output Vital Signs: Vital Signs x48h Temp Pulse Resp BP Pulse Ox 07/12/24 08:00 37.3 C 90 16 127/72 97 07/12/24 04:30 36.7 C 67 18 113/66 96 Intake & Output: Intake & Output 07/09/24 07/10/24 07/11/2425 23:59 23:59 23:59 23:59 Intake Total 3200 / 3200 900 / 900 Output Total 3955 / 3955 550 / 550 Balance -755 / -755 350 / 350 Weight (kg) 213 lb 13.574 oz Lab Results 07/12/24 05:13 Other Labs: Lab Results x24hrs 07/12/24 Range/Units 05:13 WBC 25.2 H (4.8-10.8) x10^3/uL RBC 3.67 L (4.20-5.40) 10^6/uL Hgb 11.0 L (12.0-16.0) g/dL Hct 34.0 L (37.0-47.0) % MCV 92.6 (81.0-99.0) fL MCH 30.0 (27.0-31.0) pg MCHC 32.4 (32.0-36.0) g/dL RDW 13.6 (12.0-15.0) % Plt Count 251 (130-450) 10^3/uL MPV 10.1 (7.9-10.8) fL Neut # (Auto) Not Reportable Lymph # (Auto) Not Reportable [place] # (Auto) Not Reportable Eos # (Auto) Not Reportable Baso # (Auto) Not Reportable Absolute Nucleated RBC Not Reportable Total Counted 100 Band Neuts % (Manual) 3 (0 - 10) % Abnorm Lymph % (Manual) 0 % Nucleated RBC % Not Reportable Neutrophils # (Manual) 20.9 H (1.5-6.6) 10^3/uL Lymphocytes # (Manual) 2.0 (1.5-3.5) 10^3/uL Monocytes # (Manual) 2.3 H (0.0-1.0) 10^3/uL Eosinophils # (Manual) 0.0 (0-0.7) 10^3/uL Basophils # (Manual) 0.0 (0-0.1) 10^3/uL Differential Comment MANUAL DIFFERENTIAL Platelet Estimate NORMAL (130-450,000) (NORMAL) Platelet Morphology NORMAL APPEARANCE (NORMAL) RBC Morph Micro Appear NORMAL APPEARANCE (NORMAL) Assessment/Plan Problem List (1) care and examination of lactating mother: Impression: Routine care Anticipate discharge tomorrow (2) Status post delivery: Impression: Incision clean and intact. Care precautions given. (3) History of pre-eclampsia: Impression: No signs or symptoms currently
[2024-07-12] MEDS: IBUPROFEN 600 MG TABLET PO SCH (13:16)
--- NOTE | 2024-07-13 09:45 | PROVIDER PROGRESS NOTE ---
Subjective Subjective Subjective: Subjective Patient reports she is doing well. Lochia appropriate. Denies heavy bleeding. Ambulating. Pelvic and abdominal pain well-controlled. Tolerating oral intake. Diet: Regular. Voiding without difficulty. Passing flatus. Denies BM. Patient is bonding with baby in room, currently under lites for hyperbilirubinemia Trouble latching, but pumping and doing well with expressed milk. Denies feeling lightheaded, dizzy or excessively fatigued. Control: ParaGard at 6 weeks Objective General: Alert, oriented, no apparent distress. Cardiovascular: Regular rate. Regular rhythm. Lungs: No increased work of breathing. Abdomen: Uterus firm. Below umbilicus. No guarding or rebound. Extremities: No pain on palpation. No cords palpated. Distal pulses intact. Incision: Clean, dry, and intact. Current Medications Current Medications Current Medications: Current Medications Generic Name Dose Route Start Last Admin Trade Name Freq PRN Reason Stop Dose Admin Acetaminophen 1,000 mg 07/11/24 20:00 07/13/24 03:19 Acetaminophen 500 Mg Tablet PO 1,000 mg Q6HR SAUL Administration Docusate Sodium 100 mg 07/12/24 09:00 07/13/24 08:21 Docusate Sodium 100 Mg Capsule PO 100 mg DAILY SAUL Administration Lactated Ringer's 1,000 mls @ 100 mls/hr 07/11/24 11:00 Lr IV .Q10H SAUL Ibuprofen 600 mg 07/12/24 12:00 07/13/24 08:21 Ibuprofen 600 Mg Tablet PO 600 mg Q6HR SAUL Administration Ondansetron HCl 4 mg 07/11/24 10:29 Ondansetron Odt 4 Mg Tablet TL Q4HR PRN Nausea / Vomiting Oxycodone HCl 5 mg 07/11/24 10:29 07/11/24 21:35 Oxycodone 5 Mg Tablet PO 5 mg Q4HR PRN Administration Moderate Pain (Level 4-6) Simethicone 80 mg 07/11/24 10:07/11/24 21:35 Simethicone Chew 80 Mg Tablet PO 80 mg TID PRN Administration Gas Objective Vital Signs/Intake & Output Vital Signs: Vital Signs x48h Temp Pulse Resp BP Pulse Ox 07/13/24 08:45 36.7 C 79 16 118/75 07/13/24 02:49 36.9 C 80 16 121/74 98 Intake & Output: Intake & Output 07/10/24 07/11/24 07/12/24 07/13/24 23:59 23:59 23:59 23:59 Intake Total 3200 / 3200 900 / 900 400 / 400 Output Total 3955 / 3955 550 / 550 Balance -755 / -755 350 / 350 400 / 400 Weight (kg) 213 lb 13.574 oz Lab Results 07/12/24 05:13 ABX Reporting Has patient been on IV antibiotics over the past 48 hours?: Yes Assessment/Plan Problem List (1) care and examination of lactating mother: Impression: Routine care Anticipate discharge tomorrow (2) Status post delivery: Impression: No wound concerns. Clean, dry, intact. (3) History of pre-eclampsia: Impression: No signs of preeclampsia.
[2024-07-13] MEDS: ACETAMINOPHEN 325 MG TABLET PO SCH (18:02)
[2024-07-13 20:21] VITALS: O2SAT 99
[2024-07-14 05:32] VITALS: TEMP 98.2
--- NOTE | 2024-07-14 09:16 | Discharge Summary ---
Discharge Summary Admit Date: 07/11/24 Discharge Date: 07/14/24 HPI History of Present Illness: Admission Diagnosis: - SIUP at 36w3d - H/o deliveyr x 2, including mid-transverse delivery - Obesity - Rh + - Rubella immune - Varicella immune - GBS+ Discharge Diagnosis: - Same, delivered Procedures: repeat LTCS, EBL 700cc Hospital Course: Gloria presents for scheduled delivery. Underwent repeat LTCS with EBL of 700cc, procedure and course uncomplicated. Condition on Discharge: SUBJECTIVE: POD#3 She feels well and ready to go home. Pain is well controlled with current medications. The baby is doing, under bili lights ovenright. Baby is feeding via breast milk. Gloria is pumping and bottle feeding. She is ambulating well, tolerating normal diet, urinating without difficulty. Flatus has been passed. Lochia is reported as normal. OBJECTIVE: Vital signs reviewed GENERAL: NAD CHEST: non labored respirations ABD: soft, appropriately TTP, fundus firm INCISION: intact without erythema or drainage EXT: no evidence of DVT LAB & IMAGING STUDIES: See below PLAN: Plan for discharge home with follow up in clinic in 1 week. Reviewed home care instructions and medications. Patient counseled regarding signs and symptoms of infection, excessive bleeding, vaginal rest and activity restrictions. Planning for Paragard IUD at 6wk visit. Discussed that additional support is available in our clinic if needed. Preeclampsia precautions were reviewed. ALLERGIES Allergies Allergy/AdvReac Type Severity Reaction Status Date / Time No Known Drug Allergies Allergy Verified 07/13/24 06:35 MEDICATIONS Ambulatory Orders Medication Instructions Recorded Confirmed vit no.95-ferrous 1 ea PO DAILY 12/22/23 07/11/24 fumarate 28 mg-folic acid 800 mcg tablet acetaminophen 500 mg tablet 1,000 mg (2 x 500 mg) PO Q8H PRN 07/13/24 (Acetaminophen Extra Strength) Pain #60 tabs docusate sodium 100 mg capsule 100 - 200 mg (1 - 2 x 100 mg) PO 07/13/24 BID PRN Constipation #60 caps ibuprofen 600 mg tablet 600 mg PO Q6H PRN Pain #30 tabs 07/13/24 oxycodone 5 mg tablet 5 mg PO Q4H PRN Severe Pain #20 07/13/24 tabs LABS 07/12/24 05:13 FOLLOW UP Follow Up: 1 week visit at [facility] [place]. TIME SPENT Time Spent in Discharge (Minutes): 20 Discharge Plan Discharge Patient Disposition: 01 Home, Self Care Prescriptions: New acetaminophen [Acetaminophen Extra Strength] 500 mg tablet 1,000 mg PO Q8H PRN (Reason: Pain) Qty: 60 1RF docusate sodium 100 mg capsule 100 - 200 mg PO BID PRN (Reason: Constipation) Qty: 60 1RF ibuprofen 600 mg tablet 600 mg PO Q6H PRN (Reason: Pain) Qty: 30 0RF oxycodone 5 mg tablet 5 mg PO Q4H PRN (Reason: Severe Pain) Qty: 20 0RF Continued PNV cmb#95-ferrous fumarate-FA 1 EACH tablet 1 ea PO DAILY Discontinued aspirin [Adult Aspirin Regimen] 81 mg tablet,delayed release (DR/EC) 81 mg PO QDAY Activity Restrictions/Additional Instructions: Pelvic rest for 6 weeks. No lifting more than baby. Diet: Regular Print Language: Panamanian Patient Instructions: Childbirth Breast Care, , Depression , Change Expect Parents Follow-up Care: Jacky Sanabria MD [Provider Admit Priv/Credential] - (1 week)
[2024-07-14 16:58] VITALS: BP 105/72
--- NOTE | 2024-07-14 17:03 | Labor Flowsheet ---
Labor Flowsheet Datetime Report Generated by CPN: 07/14/2024 17:03 Datetime: 07/11/2024 09:06 VAGINAL EXAM Membranes Ruptured Date/Time: 07/11/2024 09:02 Membranes Rupture Method: Artificial Amniotic Fluid Color: Clear
== END 2024-07-14 17:00 | disposition home or self-care (01) | DRG 786 ==
LOC: FBP 05:52
PROVIDERS: ADMIT Obstetrics & Gynecology; ATTEND Obstetrics & Gynecology
DX: B95.1 Streptococcus, group B, as the cause of diseases classified elsewhere; Z87.59 Personal history of other complications of pregnancy, childbirth and the puerperium; N39.0 Urinary tract infection, site not specified; O99.214 Obesity complicating childbirth; O10.92 Unspecified pre-existing hypertension complicating childbirth; O34.212 Maternal care for vertical scar from previous cesarean delivery; Z37.0 Single live birth; O26.03 Excessive weight gain in pregnancy, third trimester; O75.3 Other infection during labor; Z3A.36 36 weeks gestation of pregnancy